=== PATIENT | female | born 1935 | race Caucasian/White ===

== ENCOUNTER 2019-07-30 20:03 | Emergency (ER) | payer MEDICARE ==
[~2019-07-30] VITALS: Ht 165.1 cm; Wt 84.1 kg
[~2019-07-30 20:03] MED LIST: ATOR20TA PO; CYCL-394 PO; DABI150C PO; DIGO250T PO; DRON400T6 PO; ISOS30TA9 PO; LOSA1TAB15 PO; METO100T7 PO; MULT-785 PO; SERT-153 PO; SITA100T15 PO
[2019-07-30] MEDS ORDERED: normal saline 1000ML IV soln IVB ONE (20:10)
[2019-07-30] MEDS ORDERED: CefTRIAXone 2gm/D5W 50ml 50 ML IV ONE (20:15)
[2019-07-30 20:57] LABS: CLARITY,URINE CLOUDY (Clear); COLOR,URINE YELLOW (Yellow); GLUCOSE, URINE NEGATIVE (Neg); KETONES,URINE NEGATIVE (Neg); LEUKOCYTE ESTERASE ,URINE MODERATE (Neg); NITRITES, URINE POSITIVE (Neg); OCCULT BLOOD,URINE TRACE-INTACT (Neg); PROTEIN,URINE 100 mg/dl (Neg)
[2019-07-30 20:59] LABS: BASOPHILS # (AUTO) 0.1 X10'3 (0-0.2); BASOPHILS % (AUTO) 0.9 % (0-1); EOSINOPHILS # (AUTO) 0.2 X10'3 (0-0.9); EOSINOPHILS % (AUTO) 2.2 % (0-6); LYMPHOCYTES # (AUTO) 2.6 X10'3 (1.1-4.8); LYMPHOCYTES % (AUTO) 23.4 % (21-51); MEAN CORPUSCULAR HEMOGLOBIN 28.1 PG (27.0-31.0); MEAN CORPUSCULAR HGB CONC 34.1 g/dL (33.0-36.5); MEAN CORPUSCULAR VOLUME 82.3 FL (78-98); MEAN PLATELET VOLUME 8.5 FL (7.4-10.4); MONOCYTES # (AUTO) 0.8 X10'3 (0-0.9); MONOCYTES % (AUTO) 7.4 % (2-12); NEUTROPHILS # (AUTO) 7.4 X10'3 (1.8-7.7); NEUTROPHILS % (AUTO) 66.1 % (42-75); PLATELET COUNT 310 X10'3 (140-440); RED BLOOD COUNT 4.98 X10'6 (4.20-5.60); RED CELL DISTRIBUTION WIDTH 14.4 % (11.5-14.5); WHITE BLOOD COUNT 11.2 X10'3 (4.5-11.0)
[2019-07-30 21:04] LABS: UA COLLECTION TYPE STRAIGHT CATH
[2019-07-30 21:05] LABS: BACTERIA,URINE 2+ /HPF (Neg); RBC,URINE 0-2 /HPF (0-2); SQUAMOUS EPITHELIAL CELL,UR FEW /LPF (FEW)
[2019-07-30 21:15] LABS: ALANINE AMINOTRANSFERASE 14 U/L (12-78); ALBUMIN 3.1 G/DL (3.4-5.0); ALBUMIN/GLOBULIN RATIO 0.8 (1.1-1.5); ALKALINE PHOSPHATASE 56 IU/L (46-116); ANION GAP 6 (8-16); ASPARTATE AMINO TRANSFERASE 16 U/L (10-37); BILIRUBIN,TOTAL 0.4 MG/DL (0.1-1.0); BLOOD UREA NITROGEN 20 MG/DL (7-18); CALCIUM 9.3 MG/DL (8.5-10.1); CHLORIDE 102 MMOL/L (99-107); CREATININE 0.69 MG/DL (0.40-0.90); GLUCOSE 120 MG/DL (70-104); POTASSIUM 3.7 MMOL/L (3.5-5.1); SODIUM 141 MMOL/L (135-145); TOTAL CARBON DIOXIDE 32.6 MMOL/L (24-32); TOTAL PROTEIN 7.2 G/DL (6.4-8.2); eGFR 81 ML/MIN
[2019-07-30] MEDS ORDERED: CEPH500C5 PO (21:54)
[2019-07-30 22:11] VITALS: BP 115/82
== END 2019-07-30 22:19 | disposition home or self-care (01) ==
LOC: ER 20:03
DX: N39.0 Urinary tract infection, site not specified (principal); I48.91 Unspecified atrial fibrillation; E78.00 Pure hypercholesterolemia, unspecified; I10 Essential (primary) hypertension; Z88.2 Allergy status to sulfonamides; Z79.899 Other long term (current) drug therapy; Z88.5 Allergy status to narcotic agent
CPT/HCPCS: 36415; 80053; 81001; 85025; 87077; 87088; 87186; 96365; 99283; J0696; J7030; P9612

== ENCOUNTER 2020-04-05 22:17 | Inpatient (IN) | payer MEDICARE, MEDICAID ==
[~2020-04-05] VITALS: Ht 165.1 cm; Wt 103.6 kg
[~2020-04-05 22:17] MED LIST changes: +CEPH500C5 PO
[2020-04-05] MEDS ORDERED: normal saline 1000ml 1,000 ML IV ONE (22:45)
--- NOTE | 2020-04-05 22:45 | NUR ---
SPOKE WITH EDRI YINA REGARDING PT HYPOTENSION. PER EDRI YINA, VERBAL ORDER FOR 1LITER NORMAL SALINE BOLUS AND DRAW A RAINBOW LABS. ORDER PLACED.
--- NOTE | 2020-04-05 22:48 | NUR ---
relieving RN for break, pt is in xray
--- NOTE | 2020-04-05 22:56 | NUR ---
PT IS BACK FROM XRAY, SHE IS GCS 15, PALE, CLAMMY, SHE IS ASKING FOR AN EKG, C/O FEELING WEAK AND CHEST PRESSURE, BP IS 77/54
[2020-04-05 23:06] LABS: BASOPHILS # (AUTO) 0.1 X10'3 (0-0.2); BASOPHILS % (AUTO) 0.2 % (0-1); EOSINOPHILS % (AUTO) 0 % (0-6); HEMATOCRIT 40.6 % (35.0-45.0); HEMOGLOBIN 13.3 g/dl (12.0-16.0); LYMPHOCYTES # (AUTO) 1.8 X10'3 (1.1-4.8); LYMPHOCYTES % (AUTO) 5.9 % (21-51); MEAN CORPUSCULAR HEMOGLOBIN 27.8 PG (27.0-31.0); MEAN CORPUSCULAR HGB CONC 32.9 g/dL (33.0-36.5); MEAN CORPUSCULAR VOLUME 84.5 FL (78-98); MEAN PLATELET VOLUME 8.1 FL (7.4-10.4); MONOCYTES # (AUTO) 1.3 X10'3 (0-0.9); MONOCYTES % (AUTO) 4.3 % (2-12); NEUTROPHILS # (AUTO) 27.2 X10'3 (1.8-7.7); NEUTROPHILS % (AUTO) 89.6 % (42-75); PLATELET COUNT 294 X10'3 (140-440); RED CELL DISTRIBUTION WIDTH 13.6 % (11.5-14.5)
[2020-04-05 23:07] LABS: WHITE BLOOD COUNT 30.4 X10'3 (4.5-11.0)
--- NOTE | 2020-04-05 23:10 | NUR ---
Dr Nation aware of WBC 30, report to Giovana DELCID, 1st liter NS infusing w/o
[2020-04-05] MEDS ORDERED: normal saline 1000ML IV soln IV ONE ×2 (23:15→23:55)
[2020-04-05 23:20] LABS: PLATELET ESTIMATE NORMAL; TOTAL CELLS COUNTED 100
[2020-04-05 23:23] LABS: ALANINE AMINOTRANSFERASE 27 U/L (12-78); ALBUMIN 3.2 G/DL (3.4-5.0); ALBUMIN/GLOBULIN RATIO 0.8 (1.1-1.5); ALKALINE PHOSPHATASE 53 IU/L (46-116); ANION GAP 13 (8-16); ASPARTATE AMINO TRANSFERASE 23 U/L (10-37); BILIRUBIN,TOTAL 0.8 MG/DL (0.1-1.0); BLOOD UREA NITROGEN 26 MG/DL (7-18); BUN/CREATININE RATIO 20.8 (6.6-38.0); CALCIUM 9.3 MG/DL (8.5-10.1); CHLORIDE 101 MMOL/L (99-107); CREATININE 1.25 MG/DL (0.40-0.90); GLUCOSE 230 MG/DL (70-104); SODIUM 140 MMOL/L (135-145); TOTAL CARBON DIOXIDE 25.7 MMOL/L (24-32); TOTAL PROTEIN 7.1 G/DL (6.4-8.2); eGFR 41 ML/MIN
--- NOTE | 2020-04-05 23:25 | NUR ---
PULSE OX IS 85% ON ROOM AIR WITH GOOD PLETH, PLACED 02 2LITERS NASAL CANNULA AND PULSE OX INCREASED TO 96%
--- NOTE | 2020-04-05 23:25 | NUR ---
ASSISTING RN WITH PT CARE, STARTED 20GU TO RT AC, IV TO LEFT AC INFILTRATED, DC'D CANNULA INTACT, BLOOD CX HAVE BEEN DRAWN
[2020-04-05 23:29] LABS: MAGNESIUM 1.8 MG/DL (1.5-2.4); TROPONIN I < 0.04 NG/ML (0.0-0.05)
[2020-04-05] MEDS ORDERED: levoFLOXACIN-Levaquin 750MG/D5 150 ML IV ONE (23:55)
[2020-04-06] VITALS (19 sets, daily range): BP systolic 78–136; BP diastolic 38–55
[2020-04-06 00:53] LABS: CLARITY,URINE CLOUDY (Clear); COLOR,URINE YELLOW (Yellow); GLUCOSE, URINE NEGATIVE (Neg); KETONES,URINE NEGATIVE (Neg); LEUKOCYTE ESTERASE ,URINE MODERATE (Neg); NITRITES, URINE POSITIVE (Neg); OCCULT BLOOD,URINE MODERATE (Neg); PH,URINE 5.5 (4.8-8.0); PROTEIN,URINE TRACE mg/dl (Neg); UA COLLECTION TYPE FOLEY CATH; UROBILINOGEN,URINE 0.2 E.U/dL (0.2-1.0)
[2020-04-06 00:57] LABS: BACTERIA,URINE 4+ /HPF (Neg); SQUAMOUS EPITHELIAL CELL,UR FEW /LPF (FEW); WBC,URINE TNTC /HPF (0-4)
--- NOTE | 2020-04-06 01:46 | NUR ---
LOG DECK TENDER AT BEDSIDE FOR SPLINT
--- NOTE | 2020-04-06 02:27 | NUR ---
PT BP 89/72, YINA MADE AWARE. 1 L NS BOLUS ORDERED
[2020-04-06] MEDS ORDERED: normal saline 1000ml 1,000 ML IV ONE (02:30)
--- NOTE | 2020-04-06 02:34 | NUR ---
SPOKE WITH WELLINGTON BRAN REGARDING PT PAIN. RECEIVED VERBAL ORDER FOR NORCO 10/325 PO X1 DOSE NOW. ORDER PLACED AND COMPLETED.
[2020-04-06] MEDS ORDERED: HYDROcodone/acetaminophen 10/325mg tab PO ONE (02:35)
[2020-04-06] MEDS ORDERED: magnesium 4gm in 100ml NS 100 ML IV PRN (03:00)
[2020-04-06] MEDS ORDERED: LIDOcaine 2% 10ml TOPICAL JELLY (Urojet) TP ONE (03:00)
[2020-04-06] MEDS ORDERED: HYDROcodone/acetaminophen 5mg/325mg tablet PO PRN (03:00)
[2020-04-06] MEDS ORDERED: ondansetron/PF 4mg/2ml inj IV PRN (03:00)
[2020-04-06] MEDS ORDERED: HYDROmorphone inj. 0.5 MG/0.5 ML DISP.SYRIN IV PRN (03:00)
[2020-04-06] MEDS ORDERED: acetaminophen 325mg tablet PO PRN (03:00)
[2020-04-06] MEDS ORDERED: magnesium 2GM in 50ml NS 50 ML IV PRN (03:00)
[2020-04-06] MEDS ORDERED: potassium CL 10mEq/100ml bag 100 ML IV PRN ×2 (03:00)
[2020-04-06] MEDS ORDERED: potassium Cl 20 mEq SR tablet PO PRN ×2 (03:00)
--- NOTE | 2020-04-06 03:25 | NUR ---
Patient in room PCU 3010. I have received report from Giovana DELCID and had the opportunity to ask questions and assume patient care.
[2020-04-06] MEDS: normal saline 1000ml 1,000 ML IV SCH ×3 (03:45→21:21)
--- NOTE | 2020-04-06 04:00 | NUR ---
CALLED HOSPITALIST BENJI REGARDING PT MANUAL BLOOD PRESSURE 86/51. RECEIVED VERBAL ORDER FOR 500ML NORMAL SALINE BOLUS NOW.
[2020-04-06] MEDS ORDERED: normal saline 1000ML IV soln IVB ONE (04:05)
--- NOTE | 2020-04-06 04:27 | NUR ---
CALLED HOSPITALIST BENJI REGARDING PT NEW BLOOD PRESSURE 106/58. PER BENJI, HE IS OKAY WITH PT GOING UP TO THE FLOOR AT THIS TIME. WILL TRANSPORT PT UPSTAIRS. BENJI ALSO MADE AWARE OF PT POOR URINARY OUTPUT OF 375ML FROM HER TEMP KAUFMAN. NO NEW ORDERS.
--- NOTE | 2020-04-06 05:30 | NUR ---
PAGER ID: [phone] MESSAGE: patient in room # 3010 Hardik Manual BP 86/55 (49 character message out of a maximum of 240) Close [X] Send Another Page Thank you for visiting [facility]
--- NOTE | 2020-04-06 05:45 | NUR ---
Dr Smith called back. I informed manual, & auto BP map 55-60, considering calling [facility]. gave order to bolus 500 with map <500. Informed Lactic=4.1, he said do not redraw for another 2 hours from now. put misc/lab orders in and informed oncoming nurse.
--- NOTE | 2020-04-06 06:15 | NUR ---
Patient in room PCU 3010. I have received report from FARHANA Avina and had the opportunity to ask questions and assume patient care. Patient resting in bed in no distress and vitals stable.
--- NOTE | 2020-04-06 06:25 | NUR ---
Problems reprioritized. Patient report given, questions answered & plan of care reviewed with Ivanna & Cachorro DELCID.
--- NOTE | 2020-04-06 06:40 | NUR ---
bedside report given Addendum: 04/06/20 at 0721 by Kailyn Valadez RN Amended: Links added.
--- NOTE | 2020-04-06 06:49 | NUR ---
Patient in room PCU 3010. I have received report from Kailyn DELCID and had the opportunity to ask questions and assume patient care.
[2020-04-06] MEDS: sertraline 50mg tablet PO SCH (07:35)
[2020-04-06] MEDS: multivitamins, therapeutics tablet PO SCH (07:36)
[2020-04-06] MEDS: dabigatran 150mg capsule PO SCH ×2 (07:36→20:39)
[2020-04-06] MEDS: docusate sod 100mg capsule PO SCH ×2 (07:36→20:39)
[2020-04-06] MEDS: HYDROcodone/acetaminophen 10/325mg tab PO PRN ×3 (07:39→20:39)
[2020-04-06] MEDS: K and/or MAG REPLACEMENT MC SCH ×2 (08:00→20:00)
--- NOTE | 2020-04-06 08:42 | NUR ---
PAGER ID: [phone] MESSAGE: [id number] Debbie Dye: FYI repeat lactic is 5.5, previously was 4.1. thanks sheldon [phone]
[2020-04-06] MEDS ORDERED: AMLO10TA48 PO (09:28)
[2020-04-06] MEDS ORDERED: METO100T14 PO (09:28)
[2020-04-06] MEDS ORDERED: SENN-263 PO (09:28)
[2020-04-06] MEDS ORDERED: ISOS60TA4 PO (09:28)
[2020-04-06] MEDS ORDERED: ALBU18HF2 INH (09:28)
--- NOTE | 2020-04-06 10:00 | NUR ---
Administered 500cc NS bolus per md orders for BP MAP < 60
--- NOTE | 2020-04-06 12:03 | NUR ---
Paged Dr. García concerning patient's low BP RE: Debbie Dye Rm [phone] FYI: Patient blood pressure 78/51 (60) with maintenance of 100 ml/hr and receiving bolus 500 ml. Cachorro DELCID, [phone]
--- NOTE | 2020-04-06 13:11 | NUR ---
Administered 500 ml bolus for low BP 105/39.
--- NOTE | 2020-04-06 14:45 | NUR ---
Dr. García Page regarding patient's low BP Re Debbie Hardik Rm 0747 Patient vitals: BP 94/35 (54), HR 60 at end of second 500 ml bolus. Please advise, patient's diastolic remains 30-40s. Cachorro DELCID. [phone]
--- NOTE | 2020-04-06 14:48 | NUR ---
Order to change maintenance fluids for NS to 125 ml/hr verbally from Dr. García.
--- NOTE | 2020-04-06 17:55 | NUR ---
Orientee documentation: I have reviewed and agree with all interventions, assessments performed and documented by Cachorro DELCID.
--- NOTE | 2020-04-06 18:28 | NUR ---
Problems reprioritized. Patient report given, questions answered & plan of care reviewed with Lin DELCID.
--- NOTE | 2020-04-06 18:30 | NUR ---
Patient in room PCU 3012. I have received report from Kathleen DELCID and had the opportunity to ask questions and assume patient care.
[2020-04-06] MEDS: atorvastatin 20mg tablet PO SCH (20:39)
[2020-04-06] MEDS: lactobacillus rhamnosus 10,000 MMU CELLS/CAPSULE PO SCH (20:39)
[2020-04-06] MEDS: mineral oil/petrolatum, white cream 113gm jar TP SCH (20:40)
[2020-04-06] MEDS ORDERED: levoFLOXACIN-Levaquin 750MG/D5 150 ML IV SCH (23:00)
[2020-04-07] VITALS (19 sets, daily range): BP systolic 89–132; BP diastolic 42–100
--- NOTE | 2020-04-07 04:28 | NUR ---
PAGER ID: [phone] MESSAGE: boris Dye 77I [id number] admitted with sepsis, L arm blood culture came back positive for gram postivie cocci thank you katelynn DELCID [phone]
[2020-04-07 05:27] LABS: BASOPHILS % (AUTO) 0.2 % (0-1); EOSINOPHILS % (AUTO) 0.2 % (0-6); HEMATOCRIT 25.8 % (35.0-45.0); HEMOGLOBIN 8.6 g/dl (12.0-16.0); LYMPHOCYTES # (AUTO) 2.5 X10'3 (1.1-4.8); LYMPHOCYTES % (AUTO) 13.2 % (21-51); MEAN CORPUSCULAR HEMOGLOBIN 28.3 PG (27.0-31.0); MEAN CORPUSCULAR HGB CONC 33.2 g/dL (33.0-36.5); MEAN CORPUSCULAR VOLUME 85.2 FL (78-98); MEAN PLATELET VOLUME 8.4 FL (7.4-10.4); MONOCYTES # (AUTO) 1.4 X10'3 (0-0.9); MONOCYTES % (AUTO) 7.5 % (2-12); NEUTROPHILS # (AUTO) 14.9 X10'3 (1.8-7.7); NEUTROPHILS % (AUTO) 78.9 % (42-75); PLATELET COUNT 188 X10'3 (140-440); RED BLOOD COUNT 3.03 X10'6 (4.20-5.60); RED CELL DISTRIBUTION WIDTH 14.1 % (11.5-14.5); WHITE BLOOD COUNT 18.9 X10'3 (4.5-11.0)
[2020-04-07 05:40] LABS: ALANINE AMINOTRANSFERASE 22 U/L (12-78); ALBUMIN 2.3 G/DL (3.4-5.0); ALBUMIN/GLOBULIN RATIO 0.8 (1.1-1.5); ALKALINE PHOSPHATASE 35 IU/L (46-116); ANION GAP 7 (8-16); ASPARTATE AMINO TRANSFERASE 24 U/L (10-37); BILIRUBIN,TOTAL 0.4 MG/DL (0.1-1.0); BLOOD UREA NITROGEN 23 MG/DL (7-18); BUN/CREATININE RATIO 31.9 (6.6-38.0); CHLORIDE 109 MMOL/L (99-107); CREATININE 0.72 MG/DL (0.40-0.90); GLUCOSE 125 MG/DL (70-104); MAGNESIUM 1.5 MG/DL (1.5-2.4); POTASSIUM 3.6 MMOL/L (3.5-5.1); SODIUM 140 MMOL/L (135-145); TOTAL CARBON DIOXIDE 23.8 MMOL/L (24-32); TOTAL PROTEIN 5.3 G/DL (6.4-8.2); eGFR 77 ML/MIN
--- NOTE | 2020-04-07 06:05 | NUR ---
Problems reprioritized. Patient report given, questions answered & plan of care reviewed with Kathleen DELCID.
--- NOTE | 2020-04-07 06:31 | NUR ---
Patient in room PCU 3012. I have received report from Lorene DELCID and had the opportunity to ask questions and assume patient care.
--- NOTE | 2020-04-07 06:46 | NUR ---
Patient in room PCU 3012. I have received report from Lin DELCID and had the opportunity to ask questions and assume patient care.
[2020-04-07] MEDS: normal saline 1000ml 1,000 ML IV SCH ×3 (06:53→21:21)
[2020-04-07] MEDS: sertraline 50mg tablet PO SCH (07:46)
[2020-04-07] MEDS: multivitamins, therapeutics tablet PO SCH (07:46)
[2020-04-07] MEDS: docusate sod 100mg capsule PO SCH ×2 (07:46→20:00)
[2020-04-07] MEDS: HYDROmorphone 1 mg/ml syringe IV PRN (07:47)
[2020-04-07] MEDS: lactobacillus rhamnosus 10,000 MMU CELLS/CAPSULE PO SCH ×2 (07:47→20:00)
[2020-04-07] MEDS: mineral oil/petrolatum, white cream 113gm jar TP SCH ×2 (08:00→20:00)
[2020-04-07] MEDS: K and/or MAG REPLACEMENT MC SCH ×2 (08:00→20:00)
[2020-04-07] MEDS: dabigatran 150mg capsule PO SCH (10:22)
[2020-04-07] MEDS ORDERED: ringers solution, lacted 1,000 ML IV ONE (11:27)
[2020-04-07] MEDS: nystatin 15 GM powder TP SCH ×2 (12:13→20:00)
--- NOTE | 2020-04-07 13:30 | NUR ---
Administered 500cc NS bolus for BP Map < 60 per md orders.
--- NOTE | 2020-04-07 17:10 | NUR ---
Orientee documentation: I have reviewed and agree with all interventions, assessments performed and documented by Kathleen DELCID.
--- NOTE | 2020-04-07 18:11 | NUR ---
Problems reprioritized. Patient report given, questions answered & plan of care reviewed with Lin DELCID.
[2020-04-07] MEDS ORDERED: fentaNYL/PF 50MCG/1 ML 2ML syringe ONE ×2 (18:32→19:53)
[2020-04-07] MEDS ORDERED: etomidate 2mg/ml inj. ONE (18:33)
[2020-04-07] MEDS ORDERED: midazolam 2 mg/2 ml injection ONE (18:33)
[2020-04-07] MEDS ORDERED: ROPIVAcaine 0.5% (5mg/ml) 30ml vial ONE ×2 (18:34)
[2020-04-07] MEDS ORDERED: ringers solution, lacted 1,000 ML IV SCH (18:42)
[2020-04-07] MEDS ORDERED: ondansetron/PF 4mg/2ml inj IV PRN (18:45)
[2020-04-07] MEDS ORDERED: fentaNYL/PF 50MCG/1 ML 2ML syringe IV PRN ×2 (18:45)
[2020-04-07] MEDS ORDERED: labetalol 20mg/4ml (5mg/ml) syringe IV PRN (18:45)
[2020-04-07] MEDS ORDERED: morphine 2 MG/ML inj. syringe IV PRN (18:45)
[2020-04-07] MEDS ORDERED: morphine 4 MG/ML inj SYRINge IV PRN (18:45)
[2020-04-07] MEDS ORDERED: hydrALAZINE 20mg/ml inj. IV PRN (18:45)
[2020-04-07] MEDS ORDERED: albumin (Human) 5% 250ml 250 ML IV ONE ×2 (19:17)
[2020-04-07] MEDS ORDERED: ceFAZolin 1000mg inj ONE (19:22)
[2020-04-07] MEDS ORDERED: ondansetron/PF 4mg/2ml inj ONE (19:52)
--- NOTE | 2020-04-07 20:35 | NUR ---
Received from OR via PCU BED, accompanied by Anesthesiologist DR SARAH and report given by Anesthesiolgist. PT PLACED ON O2 AND MONITOR, S/P ORIF LEFT TIBIA, GENERAL ANESTH, PT HAS DRESSING TO ANTERIOR LOWER LEG WITH WOUND VAC ATTACHED, NO DRAINAGE NOTED, GOOD PEDAL PULSES BILAT, PT HAS SEVERE ECCHYMOSIS TO RIGHT LOWER LEG WELL. PT HAD, LEFT LEFT FEMORAL NERVE BLOCK AND LEFT SCIATIC BLOCK, DENIES ANY PAIN OR NAUSEA AT THIS TIME WILL CONT TO ASSESS.
--- NOTE | 2020-04-07 21:45 | NUR ---
Report called to receiving nurse. Transferred via PCU BED TO ROOM 3012A Belongings . Special Issues communicated to receiving nurse. REVIEWED PT'S SURGERY SITE WITH PT'S RN, RESPIRATORY LEFT BIPAP AT BEDSIDE PT STILL HAS NOT NEEDED IT AT THIS TIME. ANESTHESIA WANTED IT ON STANDBY.
--- NOTE | 2020-04-07 22:00 | NUR ---
pt arrived back to PCU unit from surgery, pt still coming off anesthesia. pt on non rebreather at 10 liters tolerating well does not complain of any pain at this time. L leg has immobilization in place and L anterior wound vac intact and suctioning. will closely monitor pt
[2020-04-07] MEDS ORDERED: levoFLOXACIN-Levaquin 750MG/D5 150 ML IV SCH (23:00)
[2020-04-08] VITALS (14 sets, daily range): BP systolic 93–120; BP diastolic 39–78
[2020-04-08] MEDS: atorvastatin 20mg tablet PO SCH ×2 (00:26→20:33)
[2020-04-08] MEDS: dabigatran 150mg capsule PO SCH ×3 (00:26→20:32)
[2020-04-08] MEDS: cefazolin/dext.iso 2gm/50ml 50 ML IV SCH ×2 (01:42→09:57)
[2020-04-08] MEDS: HYDROmorphone 1 mg/ml syringe IV PRN ×2 (01:58→14:01)
[2020-04-08] MEDS ORDERED: famotidine 20mg tablet PO ONE (06:00)
--- NOTE | 2020-04-08 06:05 | NUR ---
received report from yari pace
[2020-04-08 06:08] LABS: BASOPHILS % (AUTO) 0.1 % (0-1); EOSINOPHILS % (AUTO) 0 % (0-6); LYMPHOCYTES % (AUTO) 8.7 % (21-51); MEAN CORPUSCULAR HEMOGLOBIN 28.5 PG (27.0-31.0); MEAN CORPUSCULAR VOLUME 86.4 FL (78-98); MEAN PLATELET VOLUME 8.3 FL (7.4-10.4); MONOCYTES # (AUTO) 0.6 X10'3 (0-0.9); MONOCYTES % (AUTO) 5.1 % (2-12); NEUTROPHILS # (AUTO) 10.2 X10'3 (1.8-7.7); NEUTROPHILS % (AUTO) 86.1 % (42-75); PLATELET COUNT 159 X10'3 (140-440); RED BLOOD COUNT 2.37 X10'6 (4.20-5.60); RED CELL DISTRIBUTION WIDTH 14.3 % (11.5-14.5); WHITE BLOOD COUNT 11.9 X10'3 (4.5-11.0)
[2020-04-08 06:15] LABS: HEMATOCRIT 20.4 % (35.0-45.0); HEMOGLOBIN 6.7 g/dl (12.0-16.0)
--- NOTE | 2020-04-08 06:17 | NUR ---
PAGER ID: [phone] MESSAGE: Debbie Hardik [id number], pt had a ortho procedure on L tibia due to fracture yesterday pt H&H is 6.7 and 20.4 this morning which is decreased from yesterday 8.6 and 25.8. thank you Lin Otto 2052
[2020-04-08 06:23] LABS: ALANINE AMINOTRANSFERASE 22 U/L (12-78); ALBUMIN 2.6 G/DL (3.4-5.0); ALBUMIN/GLOBULIN RATIO 0.9 (1.1-1.5); ALKALINE PHOSPHATASE 31 IU/L (46-116); ANION GAP 8 (8-16); ASPARTATE AMINO TRANSFERASE 20 U/L (10-37); BILIRUBIN,TOTAL 0.4 MG/DL (0.1-1.0); BLOOD UREA NITROGEN 18 MG/DL (7-18); CHLORIDE 110 MMOL/L (99-107); GLUCOSE 148 MG/DL (70-104); MAGNESIUM 1.5 MG/DL (1.5-2.4); POTASSIUM 3.6 MMOL/L (3.5-5.1); SODIUM 142 MMOL/L (135-145); TOTAL CARBON DIOXIDE 23.6 MMOL/L (24-32); TOTAL PROTEIN 5.4 G/DL (6.4-8.2); eGFR > 90 ML/MIN
--- NOTE | 2020-04-08 06:28 | NUR ---
Problems reprioritized. Patient report given, questions answered & plan of care reviewed with Tonya DELCID.
[2020-04-08] MEDS: lactobacillus rhamnosus 10,000 MMU CELLS/CAPSULE PO SCH ×2 (08:00→20:00)
[2020-04-08] MEDS: multivitamins, therapeutics tablet PO SCH (08:00)
[2020-04-08] MEDS: K and/or MAG REPLACEMENT MC SCH ×2 (08:00→20:00)
[2020-04-08] MEDS: docusate sod 100mg capsule PO SCH ×2 (08:00→20:00)
[2020-04-08] MEDS: cyclobenzaprine 10mg tablet PO PRN ×2 (08:08→20:32)
[2020-04-08] MEDS: sertraline 50mg tablet PO SCH (08:12)
[2020-04-08] MEDS: nystatin 15 GM powder TP SCH ×2 (08:15→20:36)
[2020-04-08] MEDS: mineral oil/petrolatum, white cream 113gm jar TP SCH ×2 (08:15→20:36)
--- NOTE | 2020-04-08 08:15 | NUR ---
scanner on computer not scanning meds into [employer], checked all meds prior to admin
[2020-04-08] MEDS: normal saline 1000ml 1,000 ML IV SCH ×3 (08:16→20:36)
--- NOTE | 2020-04-08 13:49 | NUR ---
pt provena wound vac battery is low and cannister full, nursing sup okayed vac change to large hemovac w/provena therapy, vac change is successful, continue to monitor
--- NOTE | 2020-04-08 14:28 | NUR ---
took pics of pt wounds, photos in chart, continue to monitor
--- NOTE | 2020-04-08 15:11 | NUR ---
throughout day offered pt to take something that would help her have a bm, pt refused telling me 'i dont need that', continue to educate and monitor
--- NOTE | 2020-04-08 18:10 | NUR ---
Patient in room PCU 3012. I have received report from FARHANA Castaneda and had the opportunity to ask questions and assume patient care.
--- NOTE | 2020-04-08 18:18 | NUR ---
gave report to yari de leon
--- NOTE | 2020-04-08 23:54 | NUR ---
Patient is refusing to keep blood pressure cuff on for mobile monitoring.
[2020-04-09 02:00] VITALS: BP 114/47
[2020-04-09 06:00] VITALS: BP 112/93
--- NOTE | 2020-04-09 06:00 | NUR ---
Problems reprioritized. Patient report given, questions answered & plan of care reviewed with
--- NOTE | 2020-04-09 06:19 | NUR ---
Problems reprioritized. Patient report given, questions answered & plan of care reviewed with FARHANA Logan.
--- NOTE | 2020-04-09 06:51 | NUR ---
Patient refused Labs will continue to monitor
[2020-04-09] MEDS: docusate sod 100mg capsule PO SCH ×2 (07:54→20:00)
[2020-04-09] MEDS: sertraline 50mg tablet PO SCH (07:56)
[2020-04-09] MEDS: K and/or MAG REPLACEMENT MC SCH ×2 (08:00→20:00)
[2020-04-09] MEDS: nystatin 15 GM powder TP SCH ×2 (08:00→20:32)
[2020-04-09] MEDS: lactobacillus rhamnosus 10,000 MMU CELLS/CAPSULE PO SCH ×2 (08:00→20:00)
[2020-04-09] MEDS: multivitamins, therapeutics tablet PO SCH (08:00)
[2020-04-09] MEDS: mineral oil/petrolatum, white cream 113gm jar TP SCH ×2 (08:00→20:33)
[2020-04-09] MEDS: dabigatran 150mg capsule PO SCH ×2 (08:00→20:30)
--- NOTE | 2020-04-09 08:03 | NUR ---
Patient refusing her Multi vitamin, Pradaxa and lactobacillus saying she will take them in evening.
--- NOTE | 2020-04-09 09:18 | NUR ---
Spoke to Debbie about refusing labs and explained the importance of the labs. Patient does not want them drawn and states they may try again tonight.
[2020-04-09 11:00] VITALS: BP 144/89
--- NOTE | 2020-04-09 12:29 | NUR ---
Had RT listen to Sergio lungs to evaluate RT needs patient states daughter might be able to bring home CPAP in.
--- NOTE | 2020-04-09 13:42 | NUR ---
PAGER ID: [phone] MESSAGE: [id number] Debbie Dye May need to have pacer interogated due to some new morphology on telle. Pacer was not capturing but now back to baseline. #[id number]
[2020-04-09] MEDS: normal saline 1000ml 1,000 ML IV SCH (14:19)
[2020-04-09 15:00] VITALS: BP 96/71
--- NOTE | 2020-04-09 15:40 | NUR ---
RECEIVED REPOT FROM FARHANA ANAYA. AGREE WITH PRIOR ASSESSMENT.EXCEPT ORIENTED TO SELF ONLY. REFUSING ALL CARE AT THIS TIME. ORDER TO HAVE PPM INTERROGATED. NOT ABLE TO TELL MY MANUFACTURE, BUT STATES "WAS DR. COATS IN [place]" . CALLED THAT OFFICE, SPOKE TO "BRANDYN", STATES"IT IS A [employer] PACEMAKER".
--- NOTE | 2020-04-09 15:44 | NUR ---
Problems reprioritized. Patient report given, questions answered & plan of care reviewed with Amauri.
--- NOTE | 2020-04-09 15:48 | NUR ---
PAGED RT:NEW RT ORDERS FOR 3012A. SHE IS ANXIOS TO SEE YOU. LINDSAY [phone]. TY
[2020-04-09] MEDS: ipratropium/albuterol 3ml nebule NEB SCH ×3 (15:59→23:14)
--- NOTE | 2020-04-09 17:49 | NUR ---
PAGER ID: [phone] MESSAGE: DR. JACOB, [id number]/ARTURO, I ASSUMED CARE AT 1540. JUST READ TODAYS PROG NOTE. SHE IS CONFUSED TO TIME AND PLACE. INSISTS WE ARE NOT IN [place] OR [facility], AND THAT IT IS April. IGNACIO, LINDSAY 4041.
[2020-04-09 18:00] VITALS: BP 130/88
--- NOTE | 2020-04-09 18:29 | NUR ---
Problems reprioritized. Patient report given, questions answered & plan of care reviewed with FARHANA MONTGOMERY.
[2020-04-09] MEDS: atorvastatin 20mg tablet PO SCH (20:30)
[2020-04-09] MEDS: cyclobenzaprine 10mg tablet PO PRN (20:30)
[2020-04-09 22:00] VITALS: BP 139/52
[2020-04-10] VITALS (13 sets, daily range): BP systolic 107–143; BP diastolic 51–67
[2020-04-10] MEDS: ipratropium/albuterol 3ml nebule NEB SCH ×6 (03:29→22:50)
--- NOTE | 2020-04-10 05:02 | NUR ---
Patient refused all repositioning and wound care throughout shift. I discussed the importance of allowing us to do these things, she stated, "maybe tomorrow, but not tonight"
--- NOTE | 2020-04-10 06:05 | NUR ---
RECEIVED REPORT FROM FARHANA MONTGOMERY
--- NOTE | 2020-04-10 06:11 | NUR ---
Problems reprioritized. Patient report given, questions answered & plan of care reviewed with FARHANA Castaneda.
[2020-04-10 06:57] LABS: BASOPHILS % (AUTO) 0.2 % (0-1); EOSINOPHILS % (AUTO) 0.1 % (0-6); HEMOGLOBIN 8.5 g/dl (12.0-16.0); LYMPHOCYTES % (AUTO) 9.9 % (21-51); MEAN CORPUSCULAR HEMOGLOBIN 28.3 PG (27.0-31.0); MEAN CORPUSCULAR HGB CONC 32.8 g/dL (33.0-36.5); MEAN CORPUSCULAR VOLUME 86.3 FL (78-98); MEAN PLATELET VOLUME 8.3 FL (7.4-10.4); MONOCYTES # (AUTO) 1.9 X10'3 (0-0.9); MONOCYTES % (AUTO) 9.4 % (2-12); NEUTROPHILS # (AUTO) 16.4 X10'3 (1.8-7.7); NEUTROPHILS % (AUTO) 80.4 % (42-75); PLATELET COUNT 207 X10'3 (140-440); RED BLOOD COUNT 3.02 X10'6 (4.20-5.60); WHITE BLOOD COUNT 20.4 X10'3 (4.5-11.0)
[2020-04-10 07:13] LABS: ALANINE AMINOTRANSFERASE 19 U/L (12-78); ALBUMIN 2.6 G/DL (3.4-5.0); ALBUMIN/GLOBULIN RATIO 0.9 (1.1-1.5); ALKALINE PHOSPHATASE 38 IU/L (46-116); ANION GAP 12 (8-16); ASPARTATE AMINO TRANSFERASE 16 U/L (10-37); BILIRUBIN,TOTAL 0.9 MG/DL (0.1-1.0); BLOOD UREA NITROGEN 16 MG/DL (7-18); BUN/CREATININE RATIO 28.1 (6.6-38.0); CALCIUM 8.7 MG/DL (8.5-10.1); CHLORIDE 110 MMOL/L (99-107); CREATININE 0.57 MG/DL (0.40-0.90); GLUCOSE 139 MG/DL (70-104); MAGNESIUM 1.7 MG/DL (1.5-2.4); SODIUM 143 MMOL/L (135-145); TOTAL CARBON DIOXIDE 20.7 MMOL/L (24-32); TOTAL PROTEIN 5.6 G/DL (6.4-8.2); eGFR > 90 ML/MIN
[2020-04-10 07:15] LABS: POTASSIUM 2.9 MMOL/L (3.5-5.1)
--- NOTE | 2020-04-10 07:26 | NUR ---
CRITICAL LAB VALUE TAKEN FROM LAB, REPORTED TO PRIMARY RN.
[2020-04-10] MEDS ORDERED: potassium CL 10mEq/100ml bag 100 ML IV PRN (07:35)
[2020-04-10] MEDS ORDERED: magnesium Cl slow-release 64mg tablet PO PRN ×2 (07:35→12:50)
[2020-04-10] MEDS: K and/or MAG REPLACEMENT MC SCH ×2 (07:35→08:00)
[2020-04-10] MEDS ORDERED: magnesium 4gm in 100ml NS 100 ML IV PRN ×2 (07:35→12:50)
[2020-04-10] MEDS ORDERED: potassium Cl 20 mEq SR tablet PO PRN ×3 (07:35→12:50)
[2020-04-10 07:36] LABS: NUCLEATED RED BLOOD CELLS 2 /100WBC (0-0); PLATELET ESTIMATE NORMAL; TOTAL CELLS COUNTED 100
[2020-04-10] MEDS: docusate sod 100mg capsule PO SCH ×2 (08:00→22:26)
[2020-04-10] MEDS: potassium Cl 20 mEq SR tablet PO PRN ×2 (08:21→11:09)
[2020-04-10] MEDS: dabigatran 150mg capsule PO SCH ×2 (08:21→22:27)
[2020-04-10] MEDS: cyclobenzaprine 10mg tablet PO PRN (08:22)
[2020-04-10] MEDS: sertraline 50mg tablet PO SCH (08:22)
[2020-04-10] MEDS: multivitamins, therapeutics tablet PO SCH (08:24)
[2020-04-10] MEDS: lactobacillus rhamnosus 10,000 MMU CELLS/CAPSULE PO SCH ×2 (08:24→22:26)
[2020-04-10] MEDS: mineral oil/petrolatum, white cream 113gm jar TP SCH ×2 (08:25→20:00)
[2020-04-10] MEDS: nystatin 15 GM powder TP SCH ×2 (08:25→22:30)
[2020-04-10] MEDS ORDERED: levoFLOXACIN 750MG TABLET PO SCH (11:00)
[2020-04-10 11:21] LABS: ABG BASE EXCESS -8.9 mmol/L (-2.0-2.0); ABG HCO3 17.2 mmol/L (22.0-26.0); ABG OXYGEN SATURATION 88.1 % (94-97); ABG PCO2 (T) 36.6 mmHg (32.0-45.0); ABG PO2 (T) 57.8 mmHg (75.0-100.0); ALLEN'S TEST POSITIVE; FCOHb 0.3 % (0.0-3.9); FLOW 3 L/min; FMetHb 0.3 % (0.0-1.5); FO2Hb 87.6 % (94-97); PATIENT TEMPERATURE 36.3; TOTAL HEMOGLOBIN 9.3 G/dl (12.0-16.0)
--- NOTE | 2020-04-10 11:24 | NUR ---
Pt extremely anxious and SOB. Educated pt to deep breath in through her nose and out through her mouth with deep coughing. Pt has mucus in her throat that she refuses to sit up and cough. ABG obtained with pt on 3lpm. 7.28, 37.7, 60.7, 17.2. Pt is metabolically acidotic, RN notified. Educated pt on the importance of coughing up her phlegm and she just keeps stating she cant. Spoke with nurse Castaneda and charge Cruz, pts anxiety is a major factor of her SOB and is not following the education of RN and RT. Pt is 99% of 4lpm. When she calms down and stops yelling her RR is in the low to mid 20's. When she gets agitated and anxious her RR is in the high 30's to 40's. Administered 1100 svn tx and pt ripped the mask off and took apart the nebulizer, dumping out the medication. FARHANA Castaneda aware. Addendum: 04/10/20 at 1138 by Garima Armstrong RT Amended: Links added.
--- NOTE | 2020-04-10 11:46 | NUR ---
Initial: Pt admit w/ sepsis r/t UTI, HTN, hyperlipidemia s/p ORIF for L tibia fx from fall per MD. AOx4 but quite resistive to care per RN/EMR today; refusing colace this AM as well though LBM 04/06. Noted pt has slurred speech at times as well; ANDREW recommended HAND INSPECTOR BSS pending recs at this time. Pt PO 0-25% past 4 days not meeting needs though not appropriate for high protein ed given resistiveness. PO likely impacted by constipation as well. Pt is requesting water to drink w/ straw per MD note; will trial ensure enlive TIDWM in hopes PO liquid tolerance/acceptance. MD notified. Current wt not accurate 110kg w/ no method noted; latest 103.5kg bed scale wt making BMI 39. Will continue to monitor for additional protein needs post-op. Rec: 1. liberalize diet as medically indicated to regular pending HAND INSPECTOR recs; encourage PO 2. ensure enlive TIDWM 3. routine bowel care 4. weekly wts Addendum: 04/10/20 at [address] Amended: Links added.
[2020-04-10 12:41] LABS: ABG BASE EXCESS -11.3 mmol/L (-2.0-2.0); ABG HCO3 16.9 mmol/L (22.0-26.0); ABG OXYGEN SATURATION 88.8 % (94-97); ABG PCO2 (T) 48.4 mmHg (32.0-45.0); ABG PO2 (T) 75.8 mmHg (75.0-100.0); ALLEN'S TEST POSITIVE; FCOHb 0.3 % (0.0-3.9); FLOW 5 L/min; FMetHb 0.1 % (0.0-1.5); FO2Hb 88.4 % (94-97); TOTAL HEMOGLOBIN 9.5 G/dl (12.0-16.0)
[2020-04-10] MEDS ORDERED: sodium chloride 0.45% 1,000 ML IV SCH (12:46)
[2020-04-10] MEDS ORDERED: morphine 2 MG/ML inj. syringe IV PRN (12:50)
[2020-04-10] MEDS ORDERED: sodium phosphate inj. 30 MMOL in dextrose 5%-water 250 ML IV PRN (12:50)
[2020-04-10] MEDS ORDERED: magnesium hydroxide 30ml (MOM) UD suspension PO PRN (12:50)
[2020-04-10] MEDS ORDERED: sennosides 8.6mg tablet PO PRN (12:50)
[2020-04-10] MEDS ORDERED: albuterol 2.5 MG/3 ML nebule NEB PRN ×2 (12:50)
[2020-04-10] MEDS ORDERED: magnesium 2GM in 50ml NS 50 ML IV PRN (12:50)
[2020-04-10] MEDS ORDERED: Neutra Phos packet PO PRN (12:50)
[2020-04-10] MEDS ORDERED: acetaminophen 325mg tablet PO PRN ×2 (12:50)
[2020-04-10] MEDS: K, MAG and/or Phos replacement - Verify level? MC SCH (12:50)
[2020-04-10] MEDS ORDERED: ondansetron/PF 4mg/2ml inj IV PRN (12:50)
[2020-04-10] MEDS ORDERED: LIDOcaine 2% 10ml TOPICAL JELLY (Urojet) TP ONE (12:50)
--- NOTE | 2020-04-10 12:55 | NUR ---
Patient report received from FARHANA Castaneda on PCU,
--- NOTE | 2020-04-10 13:01 | NUR ---
gave report to yari oliveira
--- NOTE | 2020-04-10 13:26 | NUR ---
pt transferred to icu
[2020-04-10] MEDS ORDERED: FENTANYL-0.9 % NACL/PF 100 ML IV PRN (13:48)
[2020-04-10 13:49] LABS: PARTIAL THROMBOPLASTIN TIME 36 SECONDS (22-32)
[2020-04-10] MEDS: pantoprazole 40 MG vial IV SCH (13:55)
[2020-04-10 13:56] LABS: LACTIC SEPSIS 2.2 MMOL/L (0.4-2.0)
[2020-04-10] MEDS: midazolam 100mg in NS 100ml 100 ML IV PRN ×2 (13:57→23:07)
[2020-04-10 14:05] LABS: MAGNESIUM 1.5 MG/DL (1.5-2.4); PHOSPHORUS 2.2 MG/DL (2.3-4.5)
[2020-04-10 14:10] LABS: ABG BASE EXCESS -7.8 mmol/L (-2.0-2.0); ABG HCO3 17.9 mmol/L (22.0-26.0); ABG OXYGEN SATURATION 96.9 % (94-97); ABG PCO2 (T) 37.2 mmHg (32.0-45.0); ABG PO2 (T) 103.4 mmHg (75.0-100.0); ALLEN'S TEST POSITIVE; FCOHb 0.3 % (0.0-3.9); FMetHb 0.3 % (0.0-1.5); FO2Hb 96.3 % (94-97); PEEP 5 cm H2O; RESPIRATORY RATE 18 b/min; TIDAL VOLUME 500 mL
[2020-04-10] MEDS: metroNIDAZOLE-Flagyl 750mg/NS 150 ML IV SCH ×2 (14:47→22:30)
--- NOTE | 2020-04-10 14:51 | NUR ---
Unable to place OG tube or NG tube. Per Dr. Da Silva, try again tomorrow 04/11/20.
[2020-04-10] MEDS ORDERED: iohexol 350MG/ML 100ml bottle IV ONE (15:50)
[2020-04-10 16:23] LABS: POTASSIUM 3.1 MMOL/L (3.5-5.1)
--- NOTE | 2020-04-10 16:35 | NUR ---
Patient transported via gurney to CT. RNx2,RT, and transport staff assisted. Patient tolerated procedure well
--- NOTE | 2020-04-10 17:11 | NUR ---
Called and spoke with Dr. Da Silva via telephone to notify contraindication with Zyvox and Fentanyl. Per Dr. Da Silva, fentanyl to be d/c'd. RN asked for alternative pain rx, no new orders at this time. PBNP>17,000, new order to d/c 1/2 NS. Will continue to monitor.
[2020-04-10] MEDS: potassium Cl 20mEq/100mL bag 100 ML IV PRN ×2 (17:14→18:13)
[2020-04-10] MEDS: sodium phosphate inj. 15 MMOL in dextrose 5%-water 250 ML IV PRN (19:51)
[2020-04-10] MEDS: linezolid 600mg/300ml PREMIX 300 ML IV SCH (20:01)
[2020-04-10] MEDS: morphine 4 MG/ML inj SYRINge IV PRN (20:06)
[2020-04-10 20:45] LABS: OXYGEN SATURATION (MIXED VEN) 63.4 % (60-80); PO2 MIXED VENOUS (TEMP COR) 33.9 mmHg (35-46)
[2020-04-10] MEDS ORDERED: sennosides/docusate sodium tablet PO SCH (21:00)
[2020-04-10] MEDS: atorvastatin 20mg tablet PO SCH (22:26)
[2020-04-11] VITALS (23 sets, daily range): BP systolic 112–164; BP diastolic 30–72
[2020-04-11 00:08] LABS: ALANINE AMINOTRANSFERASE 18 U/L (12-78); ALBUMIN 2.3 G/DL (3.4-5.0); ALBUMIN/GLOBULIN RATIO 0.8 (1.1-1.5); ALKALINE PHOSPHATASE 38 IU/L (46-116); ANION GAP 9 (8-16); ASPARTATE AMINO TRANSFERASE 17 U/L (10-37); BILIRUBIN,TOTAL 0.8 MG/DL (0.1-1.0); BLOOD UREA NITROGEN 16 MG/DL (7-18); BUN/CREATININE RATIO 24.2 (6.6-38.0); CALCIUM 8.1 MG/DL (8.5-10.1); CHLORIDE 111 MMOL/L (99-107); CREATININE 0.66 MG/DL (0.40-0.90); GLUCOSE 167 MG/DL (70-104); POTASSIUM 3.6 MMOL/L (3.5-5.1); SODIUM 143 MMOL/L (135-145); TOTAL CARBON DIOXIDE 22.6 MMOL/L (24-32); TOTAL PROTEIN 5.2 G/DL (6.4-8.2); eGFR 86 ML/MIN
[2020-04-11 00:11] LABS: PHOSPHORUS 1.6 MG/DL (2.3-4.5); TROPONIN I 0.16 NG/ML (0.0-0.05)
[2020-04-11 02:33] LABS: EOSINOPHILS % (AUTO) 0.2 % (0-6); HEMOGLOBIN 8.3 g/dl (12.0-16.0); MEAN CORPUSCULAR HEMOGLOBIN 28.6 PG (27.0-31.0); MONOCYTES # (AUTO) 1.5 X10'3 (0-0.9)
[2020-04-11 02:35] LABS: BASOPHILS % (AUTO) 0 % (0-1); HEMATOCRIT 24.9 % (35.0-45.0); LYMPHOCYTES # (AUTO) 1.7 X10'3 (1.1-4.8); LYMPHOCYTES % (AUTO) 9.4 % (21-51); MEAN CORPUSCULAR HGB CONC 33.4 g/dL (33.0-36.5); MEAN CORPUSCULAR VOLUME 85.7 FL (78-98); MONOCYTES % (AUTO) 8.2 % (2-12); NEUTROPHILS # (AUTO) 15.1 X10'3 (1.8-7.7); NEUTROPHILS % (AUTO) 82.2 % (42-75); PLATELET COUNT 217 X10'3 (140-440); RED CELL DISTRIBUTION WIDTH 15.3 % (11.5-14.5); WHITE BLOOD COUNT 18.3 X10'3 (4.5-11.0)
[2020-04-11 02:47] LABS: PARTIAL THROMBOPLASTIN TIME 39 SECONDS (22-32)
[2020-04-11] MEDS: ipratropium/albuterol 3ml nebule NEB SCH ×6 (02:51→23:07)
[2020-04-11 02:52] LABS: ALANINE AMINOTRANSFERASE 20 U/L (12-78); ALBUMIN 2.3 G/DL (3.4-5.0); ALBUMIN/GLOBULIN RATIO 0.8 (1.1-1.5); ALKALINE PHOSPHATASE 37 IU/L (46-116); ANION GAP 9 (8-16); ASPARTATE AMINO TRANSFERASE 16 U/L (10-37); BILIRUBIN,TOTAL 0.9 MG/DL (0.1-1.0); BLOOD UREA NITROGEN 17 MG/DL (7-18); BUN/CREATININE RATIO 26.2 (6.6-38.0); CALCIUM 8.4 MG/DL (8.5-10.1); CHLORIDE 111 MMOL/L (99-107); CREATININE 0.65 MG/DL (0.40-0.90); GLUCOSE 150 MG/DL (70-104); MAGNESIUM 1.5 MG/DL (1.5-2.4); PHOSPHORUS 1.6 MG/DL (2.3-4.5); POTASSIUM 3.5 MMOL/L (3.5-5.1); SODIUM 143 MMOL/L (135-145); TOTAL CARBON DIOXIDE 22.6 MMOL/L (24-32); TOTAL PROTEIN 5.2 G/DL (6.4-8.2); eGFR 87 ML/MIN
[2020-04-11 03:14] LABS: PLATELET ESTIMATE NORMAL; TOTAL CELLS COUNTED 100
[2020-04-11 04:10] LABS: ABG BASE EXCESS -4.1 mmol/L (-2.0-2.0); ABG HCO3 19.4 mmol/L (22.0-26.0); ABG OXYGEN SATURATION 91.1 % (94-97); ABG PCO2 (T) 30.3 mmHg (32.0-45.0); ABG PO2 (T) 60.4 mmHg (75.0-100.0); FMetHb 0.3 % (0.0-1.5); FO2Hb 90.8 % (94-97); PATIENT TEMPERATURE 37.4; PEEP 5 cm H2O; RESPIRATORY RATE 15 b/min; TIDAL VOLUME 450 mL; TOTAL HEMOGLOBIN 8.8 G/dl (12.0-16.0)
[2020-04-11 04:10] LABS: OXYGEN SATURATION (MIXED VEN) 59.9 % (60-80); PO2 MIXED VENOUS (TEMP COR) 31.1 mmHg (35-46)
--- NOTE | 2020-04-11 06:40 | NUR ---
Problems reprioritized. Patient report given, questions answered & plan of care reviewed with Toribio DELCID.
[2020-04-11] MEDS: metroNIDAZOLE-Flagyl 750mg/NS 150 ML IV SCH (06:43)
[2020-04-11] MEDS: K, MAG and/or Phos replacement - Verify level? MC SCH (08:00)
[2020-04-11] MEDS: docusate sod 100mg capsule PO SCH (08:00)
[2020-04-11] MEDS ORDERED: linagliptin 5mg tablet PO SCH (08:00)
[2020-04-11] MEDS: pantoprazole 40 MG vial IV SCH (08:39)
[2020-04-11] MEDS: lactobacillus rhamnosus 10,000 MMU CELLS/CAPSULE PO SCH ×2 (08:39→20:25)
[2020-04-11] MEDS: multivitamins, therapeutics tablet PO SCH (08:39)
[2020-04-11] MEDS: linezolid 600mg/300ml PREMIX 300 ML IV SCH ×2 (08:39→20:24)
[2020-04-11] MEDS: mineral oil/petrolatum, white cream 113gm jar TP SCH ×2 (08:40→20:26)
[2020-04-11] MEDS: nystatin 15 GM powder TP SCH ×2 (08:40→20:26)
[2020-04-11] MEDS: midazolam 100mg in NS 100ml 100 ML IV PRN ×2 (09:26→20:24)
[2020-04-11] MEDS: sertraline 50mg tablet PO SCH (11:23)
[2020-04-11] MEDS: sodium phosphate inj. 15 MMOL in dextrose 5%-water 250 ML IV PRN (11:29)
[2020-04-11] MEDS ORDERED: metoclopramide 5 mg/ml inj IV PRN (14:00)
[2020-04-11] MEDS: furosemide 10 MG/1 ML 10ml inj IV SCH (15:43)
--- NOTE | 2020-04-11 15:51 | NUR ---
Tube feeding consult: Patient is intubated and sedated s/p ORIF left tibia. No pressors. Pt admit w/ sepsis r/t UTI, HTN, hyperlipidemia s/p ORIF for L tibia fx from fall per MD. Prior to intubation Pt PO 0-25% past 4 days not meeting needs. Last BM 04/09. Rec: 1. Continuous tube feeding per OG tube using Vital High Protein starting at 20 ml/hr and advance by 30 ml q 8 hours to goal rate of 65 ml/hr. Will provide total 2160 ml volume 2160 calories, 189 g protein, 1814 ml water. 2. Patient has weeping edema per MD. Receiving lasix. additional water flush per MD 3. routine bowel care 4. Prealbumin q thursday/ 5. daily wts Addendum: 04/11/20 at [address] Amended: Links added.
--- NOTE | 2020-04-11 16:03 | NUR ---
Tube feeding consult: Patient is intubated and sedated s/p ORIF left tibia. No pressors. Pt admit w/ sepsis r/t UTI, HTN, hyperlipidemia s/p ORIF for L tibia fx from fall per MD. Prior to intubation Pt PO 0-25% past 4 days not meeting needs. Last BM 04/09. Rec: 1. Continuous tube feeding per OG tube using Vital High Protein starting at 20 ml/hr and advance by 30 ml q 8 hours to goal rate of 65 ml/hr. Will provide total 2160 ml volume 2160 calories, 189 g protein, 1814 ml water. 2. Patient has weeping edema per MD. Receiving lasix. additional water flush per MD 3. routine bowel care 4. Prealbumin q thursday/ 5. daily wts Addendum: 04/11/20 at [address] Amended: Links added.
[2020-04-11 17:20] LABS: CLARITY,URINE CLEAR (Clear); COLOR,URINE STRAW (Yellow); EOSINOPHILS # (AUTO) 0.1 X10'3 (0-0.9); GLUCOSE, URINE NEGATIVE (Neg); KETONES,URINE NEGATIVE (Neg); LEUKOCYTE ESTERASE ,URINE TRACE (Neg); MEAN CORPUSCULAR HEMOGLOBIN 28.6 PG (27.0-31.0); NITRITES, URINE NEGATIVE (Neg); OCCULT BLOOD,URINE MODERATE (Neg); PH,URINE 5.5 (4.8-8.0); PROTEIN,URINE NEGATIVE (Neg); RED BLOOD COUNT 3.03 X10'6 (4.20-5.60); UROBILINOGEN,URINE 0.2 E.U/dL (0.2-1.0)
[2020-04-11 17:22] LABS: BASOPHILS % (AUTO) 0.1 % (0-1); EOSINOPHILS % (AUTO) 0.3 % (0-6); HEMATOCRIT 26.2 % (35.0-45.0); HEMOGLOBIN 8.6 g/dl (12.0-16.0); LYMPHOCYTES # (AUTO) 1.7 X10'3 (1.1-4.8); LYMPHOCYTES % (AUTO) 9.3 % (21-51); MEAN CORPUSCULAR VOLUME 86.5 FL (78-98); MEAN PLATELET VOLUME 8.2 FL (7.4-10.4); MONOCYTES # (AUTO) 1.2 X10'3 (0-0.9); MONOCYTES % (AUTO) 6.4 % (2-12); NEUTROPHILS # (AUTO) 15.7 X10'3 (1.8-7.7); NEUTROPHILS % (AUTO) 83.9 % (42-75); PLATELET COUNT 232 X10'3 (140-440); RED CELL DISTRIBUTION WIDTH 15.3 % (11.5-14.5); WHITE BLOOD COUNT 18.8 X10'3 (4.5-11.0)
[2020-04-11 17:35] LABS: UA COLLECTION TYPE NON-SPECIFIED
[2020-04-11 17:36] LABS: BACTERIA,URINE FEW /HPF (Neg); HYALINE CASTS 0-3 /LPF (NEGATIVE); SQUAMOUS EPITHELIAL CELL,UR FEW /LPF (FEW); WBC,URINE 0-4 /HPF (0-4)
[2020-04-11 18:54] LABS: NUCLEATED RED BLOOD CELLS 4 /100WBC (0-0); TOTAL CELLS COUNTED 100
[2020-04-11 18:56] LABS: ANISOCYTOSIS 2+; ELLIPTOCYTES 1+; MICROCYTOSIS FEW; PLATELET ESTIMATE NORMAL; POLYCHROMASIA 1+
[2020-04-11] MEDS ORDERED: magnesium hydroxide 30ml (MOM) UD suspension NG PRN (19:17)
[2020-04-11] MEDS ORDERED: sennosides 8.6mg tablet NG PRN (19:20)
[2020-04-11] MEDS: sennosides/docusate sodium tablet NG SCH (20:25)
[2020-04-11] MEDS: atorvastatin 20mg tablet NG SCH (20:25)
[2020-04-11] MEDS: docusate sodium 100mg/10ml UD cup NG SCH (20:25)
[2020-04-11] MEDS: apixaban 2.5mg tablet NG SCH (20:26)
[2020-04-12] VITALS (24 sets, daily range): BP systolic 103–150; BP diastolic 31–59
[2020-04-12] MEDS: furosemide 10 MG/1 ML 10ml inj IV SCH ×2 (00:10→07:19)
[2020-04-12] MEDS: ipratropium/albuterol 3ml nebule NEB SCH ×6 (03:28→23:16)
[2020-04-12 03:35] LABS: EOSINOPHILS # (AUTO) 0.1 X10'3 (0-0.9); LYMPHOCYTES # (AUTO) 1.7 X10'3 (1.1-4.8); MONOCYTES # (AUTO) 1.2 X10'3 (0-0.9); NEUTROPHILS # (AUTO) 17.1 X10'3 (1.8-7.7)
[2020-04-12 03:37] LABS: BASOPHILS % (AUTO) 0.2 % (0-1); EOSINOPHILS % (AUTO) 0.6 % (0-6); HEMATOCRIT 26.7 % (35.0-45.0); HEMOGLOBIN 8.8 g/dl (12.0-16.0); LYMPHOCYTES % (AUTO) 8.5 % (21-51); MEAN CORPUSCULAR HEMOGLOBIN 28.2 PG (27.0-31.0); MEAN CORPUSCULAR HGB CONC 32.9 g/dL (33.0-36.5); MEAN CORPUSCULAR VOLUME 85.7 FL (78-98); MEAN PLATELET VOLUME 8.3 FL (7.4-10.4); MONOCYTES % (AUTO) 6.2 % (2-12); NEUTROPHILS % (AUTO) 84.5 % (42-75); PLATELET COUNT 264 X10'3 (140-440); RED BLOOD COUNT 3.11 X10'6 (4.20-5.60); RED CELL DISTRIBUTION WIDTH 15.2 % (11.5-14.5); WHITE BLOOD COUNT 20.2 X10'3 (4.5-11.0)
[2020-04-12 03:40] LABS: ABG BASE EXCESS -0.4 mmol/L (-2.0-2.0); ABG HCO3 21.6 mmol/L (22.0-26.0); ABG OXYGEN SATURATION 92.6 % (94-97); ABG PCO2 (T) 27.2 mmHg (32.0-45.0); ABG PO2 (T) 63.9 mmHg (75.0-100.0); ALLEN'S TEST POSITIVE; FCOHb 0.3 % (0.0-3.9); FMetHb 0.3 % (0.0-1.5); PATIENT TEMPERATURE 37.6; RESPIRATORY RATE 15 b/min; TIDAL VOLUME 450 mL; TOTAL HEMOGLOBIN 9.4 G/dl (12.0-16.0)
[2020-04-12 03:48] LABS: ALBUMIN 2.1 G/DL (3.4-5.0); ANION GAP 9 (8-16); BLOOD UREA NITROGEN 14 MG/DL (7-18); BUN/CREATININE RATIO 18.9 (6.6-38.0); CALCIUM 7.5 MG/DL (8.5-10.1); CHLORIDE 110 MMOL/L (99-107); CREATININE 0.74 MG/DL (0.40-0.90); GLUCOSE 177 MG/DL (70-104); MAGNESIUM 1.2 MG/DL (1.5-2.4); PARTIAL THROMBOPLASTIN TIME 37 SECONDS (22-32); PHOSPHORUS 1.8 MG/DL (2.3-4.5); PREALBUMIN 9.2 MG/DL (19-36); SODIUM 144 MMOL/L (135-145); TOTAL CARBON DIOXIDE 25.4 MMOL/L (24-32); eGFR 75 ML/MIN
[2020-04-12 03:49] LABS: POTASSIUM 2.7 MMOL/L (3.5-5.1)
[2020-04-12 04:06] LABS: ANISOCYTOSIS 2+; NUCLEATED RED BLOOD CELLS 3 /100WBC (0-0); PLATELET ESTIMATE NORMAL; TOTAL CELLS COUNTED 100
[2020-04-12 04:07] LABS: ELLIPTOCYTES 1+; POLYCHROMASIA 1+
[2020-04-12] MEDS: potassium Cl 20mEq/100mL bag 100 ML IV PRN ×6 (04:44→23:09)
[2020-04-12] MEDS: sodium phosphate inj. 15 MMOL in dextrose 5%-water 250 ML IV PRN ×2 (04:58→22:08)
[2020-04-12] MEDS: MULTIVIT-MIN/FERROUS GLUCONATE 9 MG/15 ML LIQUID NG SCH (07:17)
[2020-04-12] MEDS: apixaban 2.5mg tablet NG SCH ×2 (07:18→18:12)
[2020-04-12] MEDS: sertraline 50mg tablet NG SCH (07:18)
[2020-04-12] MEDS: linagliptin 5mg tablet NG SCH (07:18)
[2020-04-12] MEDS: lactobacillus rhamnosus 10,000 MMU CELLS/CAPSULE PO SCH ×2 (07:18→19:38)
[2020-04-12] MEDS: pantoprazole 40 MG vial IV SCH (07:19)
[2020-04-12] MEDS: morphine 4 MG/ML inj SYRINge IV PRN (07:20)
[2020-04-12] MEDS: linezolid 600mg/300ml PREMIX 300 ML IV SCH ×2 (07:20→19:38)
[2020-04-12] MEDS: nystatin 15 GM powder TP SCH ×2 (07:20→19:39)
[2020-04-12] MEDS: mineral oil/petrolatum, white cream 113gm jar TP SCH ×2 (07:20→19:39)
[2020-04-12] MEDS: docusate sodium 100mg/10ml UD cup NG SCH ×2 (07:22→19:38)
[2020-04-12] MEDS ORDERED: fluconazole-Diflucan 200mg/NS 100 ML IV SCH (08:00)
[2020-04-12] MEDS: K, MAG and/or Phos replacement - Verify level? MC SCH ×2 (08:00→15:20)
[2020-04-12] MEDS: midazolam 100mg in NS 100ml 100 ML IV PRN (08:22)
[2020-04-12] MEDS ORDERED: dextrose 50%-water 50ml dispensing syringe IV PRN ×2 (09:40)
[2020-04-12] MEDS ORDERED: MESSAGE TO PHARMACY PO ONE (09:40)
[2020-04-12] MEDS ORDERED: dexmedetomidine inj. 400 MCG in normal saline 100ml IV soln 100 ML IV PRN (11:20)
[2020-04-12] MEDS ORDERED: furosemide inj 100 ML IV SCH (11:20)
[2020-04-12] MEDS ORDERED: furosemide 1,000 MG in NS 250ml IV soln IV SCH ×2 (12:15→12:27)
[2020-04-12] MEDS ORDERED: lactulose 20gm/30ml cup NG PRN (12:50)
[2020-04-12] MEDS ORDERED: polyethylene glycol 3350 17gm powd pack PO PRN (12:50)
[2020-04-12] MEDS: insulin regular, human U-100 3ml vial - multi-dose SQ SCH ×2 (14:49→20:16)
[2020-04-12] MEDS ORDERED: sodium phosphate inj. 30 MMOL in dextrose 5%-water 250 ML IV PRN (15:20)
[2020-04-12] MEDS ORDERED: magnesium 4gm in 100ml NS 100 ML IV PRN (15:20)
[2020-04-12] MEDS ORDERED: sodium phosphate inj. 15 MMOL in dextrose 5%-water 250 ML IV PRN (15:20)
[2020-04-12 16:01] LABS: OXYGEN SATURATION (MIXED VEN) 55.5 % (60-80); PO2 MIXED VENOUS (TEMP COR) 29.8 mmHg (35-46)
[2020-04-12] MEDS: DOBUTamine-DoBUTrex 500mg/D5W 250 ML IV SCH (16:42)
--- NOTE | 2020-04-12 16:44 | NUR ---
Notified MD of critical mixed venous; orders to start dobutamine drip
[2020-04-12] MEDS: morphine/NS 100mg/100ml bag 100 ML IV SCH (17:29)
[2020-04-12 19:46] LABS: ANION GAP 10 (8-16); BLOOD UREA NITROGEN 15 MG/DL (7-18); BUN/CREATININE RATIO 18.5 (6.6-38.0); CALCIUM 7.2 MG/DL (8.5-10.1); CHLORIDE 110 MMOL/L (99-107); CREATININE 0.81 MG/DL (0.40-0.90); GLUCOSE 208 MG/DL (70-104); PHOSPHORUS 2.1 MG/DL (2.3-4.5); POTASSIUM 3.3 MMOL/L (3.5-5.1); SODIUM 144 MMOL/L (135-145); TOTAL CARBON DIOXIDE 24.5 MMOL/L (24-32); eGFR 68 ML/MIN
[2020-04-12] MEDS: sennosides/docusate sodium tablet NG SCH (20:10)
[2020-04-12] MEDS: atorvastatin 20mg tablet NG SCH (20:10)
[2020-04-12] MEDS: insulin glargine (Lantus) pen - multi-dose SQ SCH (20:17)
[2020-04-13] VITALS (30 sets, daily range): BP systolic 95–151; BP diastolic 26–52
[2020-04-13] MEDS: midazolam 100mg in NS 100ml 100 ML IV PRN (00:12)
[2020-04-13] MEDS ORDERED: albumin (human) 25% 100 ML IV solution IV ONE (01:30)
[2020-04-13] MEDS: insulin regular, human U-100 3ml vial - multi-dose SQ SCH ×4 (02:42→20:46)
[2020-04-13 02:49] LABS: BASOPHILS % (AUTO) 0.1 % (0-1); EOSINOPHILS # (AUTO) 0.1 X10'3 (0-0.9); LYMPHOCYTES # (AUTO) 1.4 X10'3 (1.1-4.8); MEAN PLATELET VOLUME 8.2 FL (7.4-10.4); NEUTROPHILS # (AUTO) 15.4 X10'3 (1.8-7.7); WHITE BLOOD COUNT 18.1 X10'3 (4.5-11.0)
[2020-04-13 02:51] LABS: EOSINOPHILS % (AUTO) 0.8 % (0-6); HEMATOCRIT 23.2 % (35.0-45.0); HEMOGLOBIN 7.7 g/dl (12.0-16.0); LYMPHOCYTES % (AUTO) 7.7 % (21-51); MEAN CORPUSCULAR HEMOGLOBIN 28.9 PG (27.0-31.0); MEAN CORPUSCULAR HGB CONC 33.2 g/dL (33.0-36.5); MEAN CORPUSCULAR VOLUME 87.3 FL (78-98); MONOCYTES # (AUTO) 1.2 X10'3 (0-0.9); MONOCYTES % (AUTO) 6.4 % (2-12); PLATELET COUNT 201 X10'3 (140-440); RED BLOOD COUNT 2.66 X10'6 (4.20-5.60); RED CELL DISTRIBUTION WIDTH 15.8 % (11.5-14.5)
[2020-04-13 03:03] LABS: ALANINE AMINOTRANSFERASE 16 U/L (12-78); ALBUMIN/GLOBULIN RATIO 1.3 (1.1-1.5); ALKALINE PHOSPHATASE 34 IU/L (46-116); ANION GAP 11 (8-16); ASPARTATE AMINO TRANSFERASE 13 U/L (10-37); BLOOD UREA NITROGEN 16 MG/DL (7-18); BUN/CREATININE RATIO 21.6 (6.6-38.0); CALCIUM 7.1 MG/DL (8.5-10.1); CHLORIDE 108 MMOL/L (99-107); CREATININE 0.74 MG/DL (0.40-0.90); GLUCOSE 165 MG/DL (70-104); MAGNESIUM 1.8 MG/DL (1.5-2.4); PHOSPHORUS 3.4 MG/DL (2.3-4.5); POTASSIUM 3.4 MMOL/L (3.5-5.1); SODIUM 145 MMOL/L (135-145); TOTAL CARBON DIOXIDE 26.5 MMOL/L (24-32); TOTAL PROTEIN 5.4 G/DL (6.4-8.2); eGFR 75 ML/MIN
[2020-04-13 03:06] LABS: PARTIAL THROMBOPLASTIN TIME 36 SECONDS (22-32)
[2020-04-13] MEDS: ipratropium/albuterol 3ml nebule NEB SCH ×6 (03:21→23:10)
[2020-04-13 03:28] LABS: ANISOCYTOSIS 2+; ELLIPTOCYTES 1+; NUCLEATED RED BLOOD CELLS 1 /100WBC (0-0); PLATELET ESTIMATE NORMAL; POLYCHROMASIA 1+; SCHISTOCYTES 1+; TOTAL CELLS COUNTED 100
[2020-04-13 03:51] LABS: ABG BASE EXCESS -2.7 mmol/L (-2.0-2.0); ABG HCO3 21.6 mmol/L (22.0-26.0); ABG OXYGEN SATURATION 85.1 % (94-97); ABG PCO2 (T) 35.4 mmHg (32.0-45.0); ABG PO2 (T) 52.1 mmHg (75.0-100.0); ALLEN'S TEST POSITIVE; FCOHb 1.4 % (0.0-3.9); FMetHb 0.1 % (0.0-1.5); FO2Hb 83.8 % (94-97); PATIENT TEMPERATURE 37.2; PEEP 5 cm H2O; RESPIRATORY RATE 15 b/min; TIDAL VOLUME 450 mL; TOTAL HEMOGLOBIN 8.4 G/dl (12.0-16.0)
[2020-04-13] MEDS: potassium Cl 20mEq/100mL bag 100 ML IV PRN ×2 (04:35→05:50)
[2020-04-13] MEDS: DOBUTamine-DoBUTrex 500mg/D5W 250 ML IV SCH ×3 (05:51→23:51)
--- NOTE | 2020-04-13 06:00 | NUR ---
RN Note -Shift Summary No neuro changes. Decreased urine output on lasix drip, now getting 30 to 50 ml per hour. Decreasing blood pressure. Started levophed. Diastolic in the 20's. Rahul Lei notified, 200 ml of albumin ordered. Increased O2 demand. PO2 on ABG 51.4, pH 7. Worsening chest x-ray. FiO2 up to 50%. Rahul Lei notified.
--- NOTE | 2020-04-13 06:15 | NUR ---
Patient in room ICU 2041. I have received report from RN and had the opportunity to ask questions and assume patient care.
[2020-04-13] MEDS: K, MAG and/or Phos replacement - Verify level? MC SCH ×2 (08:00)
[2020-04-13] MEDS: MULTIVIT-MIN/FERROUS GLUCONATE 9 MG/15 ML LIQUID NG SCH (09:09)
[2020-04-13] MEDS: docusate sodium 100mg/10ml UD cup NG SCH ×2 (09:09→19:46)
[2020-04-13] MEDS: pantoprazole 40 MG vial IV SCH (09:09)
[2020-04-13] MEDS: linagliptin 5mg tablet NG SCH (09:09)
[2020-04-13] MEDS: lactobacillus rhamnosus 10,000 MMU CELLS/CAPSULE PO SCH ×2 (09:09→19:47)
[2020-04-13] MEDS: sertraline 50mg tablet NG SCH (09:09)
[2020-04-13] MEDS: linezolid 600mg/300ml PREMIX 300 ML IV SCH (09:09)
[2020-04-13] MEDS: nystatin 15 GM powder TP SCH ×2 (09:10→19:47)
[2020-04-13] MEDS: mineral oil/petrolatum, white cream 113gm jar TP SCH ×2 (09:10→19:47)
[2020-04-13 10:33] LABS: ALBUMIN 2.7 G/DL (3.4-5.0); ANION GAP 9 (8-16); BLOOD UREA NITROGEN 19 MG/DL (7-18); BUN/CREATININE RATIO 22.9 (6.6-38.0); CALCIUM 6.6 MG/DL (8.5-10.1); CHLORIDE 110 MMOL/L (99-107); CREATININE 0.83 MG/DL (0.40-0.90); GLUCOSE 202 MG/DL (70-104); MAGNESIUM 1.6 MG/DL (1.5-2.4); PHOSPHORUS 2.9 MG/DL (2.3-4.5); POTASSIUM 3.8 MMOL/L (3.5-5.1); SODIUM 144 MMOL/L (135-145); TOTAL CARBON DIOXIDE 25.1 MMOL/L (24-32); eGFR 66 ML/MIN
[2020-04-13] MEDS: metolazone 2.5mg tablet PO SCH ×2 (12:45→19:46)
[2020-04-13] MEDS: levoFLOXACIN 750MG TABLET NG SCH (13:09)
[2020-04-13] MEDS: acetaminophen 325mg/10.15ml oral unit dose solution NG PRN ×2 (13:09→23:51)
--- NOTE | 2020-04-13 14:40 | NUR ---
Reassessment: Patient is intubated and sedated s/p ORIF left tibia. No pressors. Tolerating tube feeding at goal rate. Pt admit w/ sepsis r/t UTI, HTN, hyperlipidemia s/p ORIF for L tibia fx from fall per MD. Prior to intubation Pt PO 0-25% past 4 days not meeting needs. Last BM 04/09. Rec: 1. Continuous tube feeding per OG tube using Vital High Protein goal rate of 65 ml/hr. Will provide total 2160 ml volume 2160 calories, 189 g protein, 1814 ml water. 2. Patient has weeping edema per MD. Receiving lasix. additional water flush per MD 3. routine bowel care 4. Prealbumin q thursday/ 5. daily wts Addendum: 04/13/20 at [address] Amended: Links added.
[2020-04-13] MEDS: NORepinephrine 8mg/ 250ml NS 250 ML IV PRN ×3 (16:49→23:50)
[2020-04-13] MEDS: BUMETANIDE 0.25 MG/ML IV SCH ×2 (17:03→23:52)
[2020-04-13 17:13] LABS: EOSINOPHILS,BODY FLUID 1 %; GLUCOSE,BODY FLUID 213 MG/DL; LDH,BODY FLUID 141 U/L; LYMPHOCYTES,BODY FLUID 29 %; MONOCYTES,BODY FLUID 29 %; NEUTROPHILS,BODY FLUID 41 %
[2020-04-13 17:17] LABS: BF MESOTHELIAL CELLS FEW; BF RBC COUNT 70 /CU MM; BF WBC COUNT 435 /CU MM (0-1000); BFAPPEAR HAZY; BFCOLOR YELLOW; BFVOLUME 27 ML
[2020-04-13 17:21] LABS: TOTAL PROTEIN,BODY FLUID < 2.0 G/DL
[2020-04-13] MEDS: methylnaltrexone br 12mg/0.6ml inj***SubQ only SQ SCH (18:11)
--- NOTE | 2020-04-13 18:15 | NUR ---
Problems reprioritized. Patient report given, questions answered & plan of care reviewed with RN.
[2020-04-13] MEDS: apixaban 2.5mg tablet NG SCH (19:47)
[2020-04-13] MEDS: atorvastatin 20mg tablet NG SCH (20:12)
[2020-04-13] MEDS: sennosides/docusate sodium tablet NG SCH (20:12)
[2020-04-13] MEDS: insulin glargine (Lantus) pen - multi-dose SQ SCH (20:47)
[2020-04-13 21:34] LABS: ALBUMIN 2.7 G/DL (3.4-5.0); ANION GAP 8 (8-16); BLOOD UREA NITROGEN 19 MG/DL (7-18); BUN/CREATININE RATIO 20.7 (6.6-38.0); CALCIUM 6.9 MG/DL (8.5-10.1); CHLORIDE 107 MMOL/L (99-107); CREATININE 0.92 MG/DL (0.40-0.90); GLUCOSE 238 MG/DL (70-104); MAGNESIUM 1.6 MG/DL (1.5-2.4); PHOSPHORUS 3.2 MG/DL (2.3-4.5); POTASSIUM 3.5 MMOL/L (3.5-5.1); SODIUM 142 MMOL/L (135-145); TOTAL CARBON DIOXIDE 27.1 MMOL/L (24-32); eGFR 58 ML/MIN
[2020-04-13 21:42] LABS: TOTAL PROTEIN,URINE RANDOM 11.8 MG/DL
[2020-04-14] VITALS (24 sets, daily range): BP systolic 111–143; BP diastolic 32–52
[2020-04-14] MEDS: insulin regular, human U-100 3ml vial - multi-dose SQ SCH ×4 (02:51→20:42)
[2020-04-14 02:57] LABS: BASOPHILS # (AUTO) 0.1 X10'3 (0-0.2); BASOPHILS % (AUTO) 0.3 % (0-1); EOSINOPHILS # (AUTO) 0.2 X10'3 (0-0.9); EOSINOPHILS % (AUTO) 0.9 % (0-6); HEMOGLOBIN 9.7 g/dl (12.0-16.0); LYMPHOCYTES # (AUTO) 2.1 X10'3 (1.1-4.8); NEUTROPHILS # (AUTO) 15.7 X10'3 (1.8-7.7); NEUTROPHILS % (AUTO) 80.2 % (42-75); RED CELL DISTRIBUTION WIDTH 16.7 % (11.5-14.5)
[2020-04-14 03:00] LABS: HEMATOCRIT 29.9 % (35.0-45.0); LYMPHOCYTES % (AUTO) 10.7 % (21-51); MEAN CORPUSCULAR HEMOGLOBIN 29.1 PG (27.0-31.0); MEAN CORPUSCULAR HGB CONC 32.3 g/dL (33.0-36.5); MEAN CORPUSCULAR VOLUME 90.1 FL (78-98); MEAN PLATELET VOLUME 8.2 FL (7.4-10.4); MONOCYTES # (AUTO) 1.6 X10'3 (0-0.9); MONOCYTES % (AUTO) 7.9 % (2-12); PLATELET COUNT 245 X10'3 (140-440); RED BLOOD COUNT 3.32 X10'6 (4.20-5.60); WHITE BLOOD COUNT 19.7 X10'3 (4.5-11.0)
[2020-04-14 03:09] LABS: PARTIAL THROMBOPLASTIN TIME 35 SECONDS (22-32)
[2020-04-14 03:10] LABS: ALANINE AMINOTRANSFERASE 17 U/L (12-78); ALBUMIN 2.6 G/DL (3.4-5.0); ALKALINE PHOSPHATASE 41 IU/L (46-116); ANION GAP 6 (8-16); ASPARTATE AMINO TRANSFERASE 11 U/L (10-37); BILIRUBIN,TOTAL 1.2 MG/DL (0.1-1.0); BLOOD UREA NITROGEN 21 MG/DL (7-18); BUN/CREATININE RATIO 21.9 (6.6-38.0); CALCIUM 6.9 MG/DL (8.5-10.1); CHLORIDE 106 MMOL/L (99-107); CREATININE 0.96 MG/DL (0.40-0.90); GLUCOSE 226 MG/DL (70-104); MAGNESIUM 1.5 MG/DL (1.5-2.4); PHOSPHORUS 2.8 MG/DL (2.3-4.5); POTASSIUM 3.2 MMOL/L (3.5-5.1); SODIUM 141 MMOL/L (135-145); TOTAL CARBON DIOXIDE 28.7 MMOL/L (24-32); TOTAL PROTEIN 5.3 G/DL (6.4-8.2); eGFR 56 ML/MIN
[2020-04-14] MEDS: ipratropium/albuterol 3ml nebule NEB SCH ×6 (03:11→22:56)
[2020-04-14 03:25] LABS: ABG BASE EXCESS 0.6 mmol/L (-2.0-2.0); ABG HCO3 25.8 mmol/L (22.0-26.0); ABG OXYGEN SATURATION 87.2 % (94-97); ABG PCO2 (T) 46.1 mmHg (32.0-45.0); ABG PO2 (T) 61.9 mmHg (75.0-100.0); ALLEN'S TEST POSITIVE; FCOHb 0.5 % (0.0-3.9); FMetHb 0.3 % (0.0-1.5); FO2Hb 86.5 % (94-97); PATIENT TEMPERATURE 38.1; PEEP 5 cm H2O; RESPIRATORY RATE 15 b/min; TIDAL VOLUME 450 mL; TOTAL HEMOGLOBIN 10.3 G/dl (12.0-16.0)
[2020-04-14] MEDS: potassium Cl 20mEq/100mL bag 100 ML IV PRN ×2 (04:36→06:42)
[2020-04-14] MEDS: NORepinephrine 8mg/ 250ml NS 250 ML IV PRN ×3 (04:37→20:21)
--- NOTE | 2020-04-14 06:00 | NUR ---
RN Note -Shift Summary No neuro changes. Increased temperature, max 38.2. Unable to wean pressers.
[2020-04-14 06:40] LABS: NUCLEATED RED BLOOD CELLS 6 /100WBC (0-0); PLATELET ESTIMATE NORMAL; TOTAL CELLS COUNTED 100
[2020-04-14 06:41] LABS: ANISOCYTOSIS 1+; ELLIPTOCYTES 1+; POLYCHROMASIA 1+
[2020-04-14] MEDS: docusate sodium 100mg/10ml UD cup NG SCH ×2 (08:00→20:00)
[2020-04-14] MEDS: K, MAG and/or Phos replacement - Verify level? MC SCH ×2 (08:00)
[2020-04-14] MEDS: DOBUTamine-DoBUTrex 500mg/D5W 250 ML IV SCH ×2 (09:40→20:23)
[2020-04-14] MEDS: MULTIVIT-MIN/FERROUS GLUCONATE 9 MG/15 ML LIQUID NG SCH (10:52)
[2020-04-14] MEDS: nystatin 15 GM powder TP SCH ×2 (10:52→20:25)
[2020-04-14] MEDS: apixaban 2.5mg tablet NG SCH ×2 (10:53→20:24)
[2020-04-14] MEDS: metolazone 2.5mg tablet PO SCH ×2 (10:53→20:27)
[2020-04-14] MEDS: linagliptin 5mg tablet NG SCH (10:53)
[2020-04-14] MEDS: lactobacillus rhamnosus 10,000 MMU CELLS/CAPSULE PO SCH ×2 (10:53→20:24)
[2020-04-14] MEDS: pantoprazole 40 MG vial IV SCH (10:54)
[2020-04-14] MEDS: mineral oil/petrolatum, white cream 113gm jar TP SCH ×2 (10:55→20:25)
[2020-04-14] MEDS: BUMETANIDE 0.25 MG/ML IV SCH ×2 (11:00→17:47)
[2020-04-14] MEDS: morphine/NS 100mg/100ml bag 100 ML IV SCH (15:03)
--- NOTE | 2020-04-14 18:30 | NUR ---
Patient in room ICU 2041. I have received report from FARHANA Sam and had the opportunity to ask questions and assume patient care.
[2020-04-14 19:00] LABS: ALBUMIN 2.2 G/DL (3.4-5.0); ANION GAP 3 (8-16); BLOOD UREA NITROGEN 26 MG/DL (7-18); BUN/CREATININE RATIO 32.5 (6.6-38.0); CALCIUM 6.9 MG/DL (8.5-10.1); CHLORIDE 107 MMOL/L (99-107); GLUCOSE 190 MG/DL (70-104); MAGNESIUM 1.4 MG/DL (1.5-2.4); PHOSPHORUS 2.2 MG/DL (2.3-4.5); POTASSIUM 3.1 MMOL/L (3.5-5.1); SODIUM 142 MMOL/L (135-145); eGFR 69 ML/MIN
[2020-04-14] MEDS: sennosides/docusate sodium tablet NG SCH (20:27)
[2020-04-14] MEDS: atorvastatin 20mg tablet NG SCH (20:27)
[2020-04-14] MEDS: insulin glargine (Lantus) pen - multi-dose SQ SCH (20:45)
[2020-04-15] VITALS (24 sets, daily range): BP systolic 97–163; BP diastolic 22–59
[2020-04-15] MEDS: BUMETANIDE 0.25 MG/ML IV SCH ×3 (00:57→15:27)
[2020-04-15] MEDS: mineral oil/petrolatum ophthal oint EACHEYE SCH ×4 (02:00→20:30)
[2020-04-15] MEDS: insulin regular, human U-100 3ml vial - multi-dose SQ SCH ×4 (02:03→21:00)
[2020-04-15 02:08] LABS: EOSINOPHILS # (AUTO) 0.2 X10'3 (0-0.9); NEUTROPHILS # (AUTO) 15.6 X10'3 (1.8-7.7); WHITE BLOOD COUNT 18.8 X10'3 (4.5-11.0)
[2020-04-15 02:10] LABS: BASOPHILS % (AUTO) 0.1 % (0-1); HEMATOCRIT 28.7 % (35.0-45.0); HEMOGLOBIN 9.4 g/dl (12.0-16.0); LYMPHOCYTES # (AUTO) 1.7 X10'3 (1.1-4.8); MEAN CORPUSCULAR HEMOGLOBIN 29.2 PG (27.0-31.0); MEAN CORPUSCULAR HGB CONC 32.8 g/dL (33.0-36.5); MEAN CORPUSCULAR VOLUME 89.1 FL (78-98); MEAN PLATELET VOLUME 8.1 FL (7.4-10.4); MONOCYTES # (AUTO) 1.3 X10'3 (0-0.9); MONOCYTES % (AUTO) 6.9 % (2-12); PLATELET COUNT 216 X10'3 (140-440); RED BLOOD COUNT 3.22 X10'6 (4.20-5.60); RED CELL DISTRIBUTION WIDTH 16.7 % (11.5-14.5)
[2020-04-15 02:14] LABS: PARTIAL THROMBOPLASTIN TIME 35 SECONDS (22-32)
[2020-04-15 02:15] LABS: ALANINE AMINOTRANSFERASE 14 U/L (12-78); ALBUMIN 2.1 G/DL (3.4-5.0); ALBUMIN/GLOBULIN RATIO 0.8 (1.1-1.5); ALKALINE PHOSPHATASE 38 IU/L (46-116); ANION GAP 3 (8-16); ASPARTATE AMINO TRANSFERASE 12 U/L (10-37); BLOOD UREA NITROGEN 26 MG/DL (7-18); BUN/CREATININE RATIO 36.6 (6.6-38.0); CALCIUM 6.7 MG/DL (8.5-10.1); CHLORIDE 107 MMOL/L (99-107); CREATININE 0.71 MG/DL (0.40-0.90); GLUCOSE 161 MG/DL (70-104); MAGNESIUM 1.3 MG/DL (1.5-2.4); SODIUM 143 MMOL/L (135-145); TOTAL CARBON DIOXIDE 32.8 MMOL/L (24-32); TOTAL PROTEIN 4.7 G/DL (6.4-8.2); eGFR 79 ML/MIN
[2020-04-15 02:18] LABS: POTASSIUM 2.6 MMOL/L (3.5-5.1)
[2020-04-15] MEDS: POTASSIUM BICARB 20meq eff tab 20 MEQ TABLET.EFF NG PRN ×3 (02:23→10:37)
[2020-04-15] MEDS: ipratropium/albuterol 3ml nebule NEB SCH ×6 (02:38→23:08)
--- NOTE | 2020-04-15 03:00 | NUR ---
Patient not tolerating supine. Patient rolled for skin check and bed bath, rhythm change to v-paced, decreased oxygen saturation. Skin color to face changed to purple. Deep purple area of skin non blanchable to coccyx/ sacrum. Unable to obtain a picture secondary to patients decline in condition. Optifoam placed.
[2020-04-15 04:11] LABS: ABG BASE EXCESS 7.5 mmol/L (-2.0-2.0); ABG HCO3 31.6 mmol/L (22.0-26.0); ABG OXYGEN SATURATION 93.3 % (94-97); ABG PCO2 (T) 43.6 mmHg (32.0-45.0); ABG PO2 (T) 69.9 mmHg (75.0-100.0); ALLEN'S TEST POSITIVE; FCOHb 0.5 % (0.0-3.9); FMetHb 0.3 % (0.0-1.5); FO2Hb 92.6 % (94-97); PATIENT TEMPERATURE 37.6; PEEP 5 cm H2O; RESPIRATORY RATE 15 b/min; TIDAL VOLUME 450 mL; TOTAL HEMOGLOBIN 10.7 G/dl (12.0-16.0)
[2020-04-15] MEDS: NORepinephrine 8mg/ 250ml NS 250 ML IV PRN ×2 (05:24→15:25)
--- NOTE | 2020-04-15 06:30 | NUR ---
Patient in room ICU 2041. I have received report from Susan DELCID and had the opportunity to ask questions and assume patient care.
[2020-04-15] MEDS ORDERED: magnesium 2GM in 50ml NS 50 ML IV PRN (06:40)
[2020-04-15] MEDS ORDERED: magnesium Cl slow-release 64mg tablet PO PRN (06:40)
[2020-04-15] MEDS ORDERED: magnesium 4gm in 100ml NS 100 ML IV PRN (06:40)
--- NOTE | 2020-04-15 06:48 | NUR ---
Problems reprioritized. Patient report given, questions answered & plan of care reviewed with FARHANA Deshpande.
[2020-04-15] MEDS: pantoprazole 40 MG vial IV SCH (07:26)
[2020-04-15] MEDS: metolazone 2.5mg tablet PO SCH ×2 (07:26→20:30)
[2020-04-15] MEDS: MULTIVIT-MIN/FERROUS GLUCONATE 9 MG/15 ML LIQUID NG SCH (07:26)
[2020-04-15] MEDS: apixaban 2.5mg tablet NG SCH ×2 (07:27→20:30)
[2020-04-15] MEDS: nystatin 15 GM powder TP SCH ×2 (07:27→20:31)
[2020-04-15] MEDS: linagliptin 5mg tablet NG SCH (07:27)
[2020-04-15] MEDS: lactobacillus rhamnosus 10,000 MMU CELLS/CAPSULE PO SCH ×2 (07:27→20:30)
[2020-04-15] MEDS: mineral oil/petrolatum, white cream 113gm jar TP SCH ×2 (07:27→20:31)
[2020-04-15] MEDS: docusate sodium 100mg/10ml UD cup NG SCH ×2 (07:28→20:00)
[2020-04-15] MEDS: methylnaltrexone br 12mg/0.6ml inj***SubQ only SQ SCH (07:28)
[2020-04-15] MEDS: K, MAG and/or Phos replacement - Verify level? MC SCH (07:34)
[2020-04-15] MEDS ORDERED: methylnaltrexone br 12mg/0.6ml inj***SubQ only SQ SCH (08:00)
[2020-04-15] MEDS: acetaminophen 325mg/10.15ml oral unit dose solution NG PRN ×3 (08:40→20:49)
--- NOTE | 2020-04-15 10:29 | NUR ---
Dr. Vazquez aware of pt's temp of 38.2.
[2020-04-15] MEDS: levoFLOXACIN 750MG TABLET NG SCH (10:37)
--- NOTE | 2020-04-15 11:45 | NUR ---
Wound care provided, pics obtained per policy.
--- NOTE | 2020-04-15 12:41 | NUR ---
K and Mag redrawn as both have been replaced this shift. Dr. Kuhn called earlier for an update.
[2020-04-15 12:58] LABS: MAGNESIUM 2.6 MG/DL (1.5-2.4)
[2020-04-15 14:06] LABS: POTASSIUM 3.2 MMOL/L (3.5-5.1)
[2020-04-15] MEDS: potassium Cl 20mEq/100mL bag 100 ML IV PRN ×2 (14:28→15:34)
--- NOTE | 2020-04-15 17:37 | NUR ---
Patient's two daughters called for update.
--- NOTE | 2020-04-15 18:14 | NUR ---
Problems reprioritized. Patient report given, questions answered & plan of care reviewed with Susan DELCID.
--- NOTE | 2020-04-15 18:20 | NUR ---
Patient in room ICU 2041. I have received report from FARHANA Deshpande and had the opportunity to ask questions and assume patient care.
--- NOTE | 2020-04-15 19:31 | NUR ---
Temp. 38.5 ice packs to axilla and groin. RT changed humidifier to non invasive.
[2020-04-15] MEDS: atorvastatin 20mg tablet NG SCH (20:31)
[2020-04-15] MEDS: sennosides/docusate sodium tablet NG SCH (20:31)
[2020-04-15] MEDS: insulin glargine (Lantus) pen - multi-dose SQ SCH (20:59)
--- NOTE | 2020-04-15 21:49 | NUR ---
Patient opens eyes to physical stimuli, grimace to face with care activities. Not following commands or moving extremities.
[2020-04-15 22:18] LABS: MAGNESIUM 1.6 MG/DL (1.5-2.4)
[2020-04-15] MEDS: morphine/NS 100mg/100ml bag 100 ML IV SCH (22:56)
--- NOTE | 2020-04-15 23:00 | NUR ---
During devin care and rectal tube check. Patient found to have a open and draining wound to perineum, with copious amount of purulent drainage.
[2020-04-16] VITALS (22 sets, daily range): BP systolic 99–140; BP diastolic 36–55
[2020-04-16] MEDS: BUMETANIDE 0.25 MG/ML IV SCH ×3 (00:49→15:55)
[2020-04-16] MEDS: mineral oil/petrolatum ophthal oint EACHEYE SCH ×4 (01:35→20:00)
[2020-04-16] MEDS: insulin regular, human U-100 3ml vial - multi-dose SQ SCH ×4 (01:38→21:06)
[2020-04-16 01:44] LABS: BASOPHILS # (AUTO) 0.1 X10'3 (0-0.2); BASOPHILS % (AUTO) 0.3 % (0-1); EOSINOPHILS # (AUTO) 0.2 X10'3 (0-0.9); EOSINOPHILS % (AUTO) 0.9 % (0-6); HEMATOCRIT 28.5 % (35.0-45.0); HEMOGLOBIN 9.6 g/dl (12.0-16.0); LYMPHOCYTES # (AUTO) 1.5 X10'3 (1.1-4.8); LYMPHOCYTES % (AUTO) 8.7 % (21-51); MEAN CORPUSCULAR HEMOGLOBIN 30.3 PG (27.0-31.0); MEAN CORPUSCULAR HGB CONC 33.5 g/dL (33.0-36.5); MEAN CORPUSCULAR VOLUME 90.3 FL (78-98); MEAN PLATELET VOLUME 8.3 FL (7.4-10.4); MONOCYTES # (AUTO) 1.3 X10'3 (0-0.9); MONOCYTES % (AUTO) 7.5 % (2-12); NEUTROPHILS # (AUTO) 14.7 X10'3 (1.8-7.7); NEUTROPHILS % (AUTO) 82.6 % (42-75); PLATELET COUNT 216 X10'3 (140-440); RED BLOOD COUNT 3.16 X10'6 (4.20-5.60); RED CELL DISTRIBUTION WIDTH 16.5 % (11.5-14.5); WHITE BLOOD COUNT 17.8 X10'3 (4.5-11.0)
[2020-04-16 02:03] LABS: ALANINE AMINOTRANSFERASE 15 U/L (12-78); ALBUMIN/GLOBULIN RATIO 0.7 (1.1-1.5); ALKALINE PHOSPHATASE 43 IU/L (46-116); ANION GAP 0 (8-16); ASPARTATE AMINO TRANSFERASE 23 U/L (10-37); BILIRUBIN,TOTAL 0.9 MG/DL (0.1-1.0); BLOOD UREA NITROGEN 32 MG/DL (7-18); BUN/CREATININE RATIO 38.6 (6.6-38.0); CALCIUM 7.5 MG/DL (8.5-10.1); CHLORIDE 104 MMOL/L (99-107); CREATININE 0.83 MG/DL (0.40-0.90); GLUCOSE 150 MG/DL (70-104); PHOSPHORUS 2.1 MG/DL (2.3-4.5); POTASSIUM 3.6 MMOL/L (3.5-5.1); PREALBUMIN 9.4 MG/DL (19-36); SODIUM 142 MMOL/L (135-145); TOTAL CARBON DIOXIDE 37.7 MMOL/L (24-32); eGFR 66 ML/MIN
[2020-04-16 02:13] LABS: PARTIAL THROMBOPLASTIN TIME 32 SECONDS (22-32)
[2020-04-16] MEDS: NORepinephrine 8mg/ 250ml NS 250 ML IV PRN ×2 (02:16→12:03)
[2020-04-16] MEDS: ipratropium/albuterol 3ml nebule NEB SCH ×6 (04:01→22:59)
[2020-04-16 04:16] LABS: ABG BASE EXCESS 8.5 mmol/L (-2.0-2.0); ABG HCO3 31.8 mmol/L (22.0-26.0); ABG OXYGEN SATURATION 94.5 % (94-97); ABG PCO2 (T) 39.9 mmHg (32.0-45.0); ALLEN'S TEST POSITIVE; FCOHb 0.3 % (0.0-3.9); FMetHb 0.3 % (0.0-1.5); FO2Hb 93.9 % (94-97); PATIENT TEMPERATURE 37.6; TIDAL VOLUME 450 mL; TOTAL HEMOGLOBIN 10.1 G/dl (12.0-16.0)
--- NOTE | 2020-04-16 06:21 | NUR ---
Problems reprioritized. Patient report given, questions answered & plan of care reviewed with FARHANA Deshpande.
[2020-04-16] MEDS: K, MAG and/or Phos replacement - Verify level? MC SCH (08:00)
[2020-04-16] MEDS: linagliptin 5mg tablet NG SCH (08:19)
[2020-04-16] MEDS: MULTIVIT-MIN/FERROUS GLUCONATE 9 MG/15 ML LIQUID NG SCH (08:19)
[2020-04-16] MEDS: pantoprazole 40 MG vial IV SCH (08:19)
[2020-04-16] MEDS: metolazone 2.5mg tablet PO SCH ×2 (08:19→20:58)
[2020-04-16] MEDS: docusate sodium 100mg/10ml UD cup NG SCH ×2 (08:19→20:58)
[2020-04-16] MEDS: apixaban 2.5mg tablet NG SCH ×2 (08:20→20:58)
[2020-04-16] MEDS: mineral oil/petrolatum, white cream 113gm jar TP SCH ×2 (08:20→20:58)
[2020-04-16] MEDS: lactobacillus rhamnosus 10,000 MMU CELLS/CAPSULE PO SCH ×2 (08:20→20:58)
[2020-04-16] MEDS: nystatin 15 GM powder TP SCH ×2 (08:20→20:59)
[2020-04-16] MEDS: spironolactone 25 MG tablet PO SCH ×2 (15:55→20:59)
[2020-04-16] MEDS: acetaminophen 325mg/10.15ml oral unit dose solution NG PRN (15:56)
--- NOTE | 2020-04-16 17:33 | NUR ---
Dr. Da Silva at bedside. New order to d/c sedation medication, check patients neurological status without. Will continue to monitor.
[2020-04-16] MEDS: sennosides/docusate sodium tablet NG SCH (20:59)
[2020-04-16] MEDS: atorvastatin 20mg tablet NG SCH (20:59)
[2020-04-16] MEDS: insulin glargine (Lantus) pen - multi-dose SQ SCH (21:08)
[2020-04-17] VITALS (23 sets, daily range): BP systolic 107–142; BP diastolic 31–56
[2020-04-17] MEDS: mineral oil/petrolatum ophthal oint EACHEYE SCH ×4 (02:00→20:14)
[2020-04-17] MEDS: BUMETANIDE 0.25 MG/ML IV SCH ×3 (02:16→16:54)
[2020-04-17] MEDS: insulin regular, human U-100 3ml vial - multi-dose SQ SCH ×3 (02:46→13:43)
[2020-04-17 02:56] LABS: PHOSPHORUS 3.1 MG/DL (2.3-4.5)
[2020-04-17 03:00] LABS: PARTIAL THROMBOPLASTIN TIME 32 SECONDS (22-32)
[2020-04-17] MEDS: ipratropium/albuterol 3ml nebule NEB SCH ×6 (03:06→23:19)
[2020-04-17 03:07] LABS: BASOPHILS % (AUTO) 0.3 % (0-1); EOSINOPHILS # (AUTO) 0.1 X10'3 (0-0.9); EOSINOPHILS % (AUTO) 0.6 % (0-6); HEMOGLOBIN 8.4 g/dl (12.0-16.0); LYMPHOCYTES # (AUTO) 1.6 X10'3 (1.1-4.8); LYMPHOCYTES % (AUTO) 10.6 % (21-51); MEAN CORPUSCULAR HEMOGLOBIN 29.4 PG (27.0-31.0); MEAN CORPUSCULAR HGB CONC 32.4 g/dL (33.0-36.5); MEAN CORPUSCULAR VOLUME 90.7 FL (78-98); MEAN PLATELET VOLUME 8.4 FL (7.4-10.4); MONOCYTES # (AUTO) 1.4 X10'3 (0-0.9); MONOCYTES % (AUTO) 9.3 % (2-12); NEUTROPHILS # (AUTO) 11.8 X10'3 (1.8-7.7); NEUTROPHILS % (AUTO) 79.2 % (42-75); PLATELET COUNT 164 X10'3 (140-440); RED BLOOD COUNT 2.87 X10'6 (4.20-5.60); RED CELL DISTRIBUTION WIDTH 16.9 % (11.5-14.5); WHITE BLOOD COUNT 14.9 X10'3 (4.5-11.0)
[2020-04-17] MEDS: acetaminophen 325mg/10.15ml oral unit dose solution NG PRN ×2 (03:24→14:19)
[2020-04-17 04:36] LABS: ABG BASE EXCESS 13.1 mmol/L (-2.0-2.0); ABG HCO3 37.1 mmol/L (22.0-26.0); ABG OXYGEN SATURATION 95.5 % (94-97); ABG PCO2 (T) 46.7 mmHg (32.0-45.0); ABG PO2 (T) 82.7 mmHg (75.0-100.0); ALLEN'S TEST POSITIVE; FCOHb 0.2 % (0.0-3.9); FMetHb 0.3 % (0.0-1.5); PATIENT TEMPERATURE 37.9; PEEP 5 cm H2O; RESPIRATORY RATE 13 b/min; TIDAL VOLUME 450 mL; TOTAL HEMOGLOBIN 10.3 G/dl (12.0-16.0)
[2020-04-17 06:21] LABS: ALANINE AMINOTRANSFERASE 16 U/L (12-78); ALBUMIN 1.8 G/DL (3.4-5.0); ALBUMIN/GLOBULIN RATIO 0.6 (1.1-1.5); ALKALINE PHOSPHATASE 39 IU/L (46-116); ANION GAP 4 (8-16); ASPARTATE AMINO TRANSFERASE 24 U/L (10-37); BILIRUBIN,TOTAL 0.7 MG/DL (0.1-1.0); BLOOD UREA NITROGEN 36 MG/DL (7-18); CALCIUM 7.5 MG/DL (8.5-10.1); CHLORIDE 103 MMOL/L (99-107); CREATININE 0.72 MG/DL (0.40-0.90); GLUCOSE 124 MG/DL (70-104); SODIUM 143 MMOL/L (135-145); TOTAL CARBON DIOXIDE 36.1 MMOL/L (24-32); TOTAL PROTEIN 4.9 G/DL (6.4-8.2); eGFR 77 ML/MIN
[2020-04-17 06:23] LABS: POTASSIUM 2.8 MMOL/L (3.5-5.1)
[2020-04-17] MEDS: potassium Cl 20mEq/100mL bag 100 ML IV PRN ×4 (06:27→10:44)
[2020-04-17 06:38] LABS: MAGNESIUM 1.7 MG/DL (1.5-2.4)
--- NOTE | 2020-04-17 06:46 | NUR ---
Critical K+ 2.8. Replacement therapy initiated per critical care protocol. Will continue to monitor.
[2020-04-17] MEDS: metolazone 2.5mg tablet PO SCH ×2 (07:28→20:11)
[2020-04-17] MEDS: methylnaltrexone br 12mg/0.6ml inj***SubQ only SQ SCH (07:28)
[2020-04-17] MEDS: lactobacillus rhamnosus 10,000 MMU CELLS/CAPSULE PO SCH ×2 (07:28→20:11)
[2020-04-17] MEDS: linagliptin 5mg tablet NG SCH (07:28)
[2020-04-17] MEDS: pantoprazole 40 MG vial IV SCH (07:28)
[2020-04-17] MEDS: apixaban 2.5mg tablet NG SCH ×2 (07:29→20:13)
[2020-04-17] MEDS: docusate sodium 100mg/10ml UD cup NG SCH ×2 (07:29→20:11)
[2020-04-17] MEDS: MULTIVIT-MIN/FERROUS GLUCONATE 9 MG/15 ML LIQUID NG SCH (07:29)
[2020-04-17] MEDS: spironolactone 25 MG tablet PO SCH ×3 (07:29→20:06)
[2020-04-17] MEDS: nystatin 15 GM powder TP SCH ×2 (07:30→20:12)
[2020-04-17] MEDS: mineral oil/petrolatum, white cream 113gm jar TP SCH ×2 (07:32→20:12)
[2020-04-17] MEDS: K, MAG and/or Phos replacement - Verify level? MC SCH (08:00)
--- NOTE | 2020-04-17 10:22 | NUR ---
Dr. Da Silva at bedside. New order for Head CT.
[2020-04-17] MEDS: levoFLOXACIN 750MG TABLET NG SCH (10:44)
--- NOTE | 2020-04-17 13:42 | NUR ---
Reassessment: Patient is intubated and sedated s/p ORIF left tibia. No pressors. Tolerating tube feeding at goal rate. Pt admit w/ sepsis r/t UTI, HTN, hyperlipidemia s/p ORIF for L tibia fx from fall per MD. Prior to intubation Pt PO 0-25% past 4 days not meeting needs. Last BM 04/17. Rec: 1. Continuous tube feeding per OG tube using Vital High Protein goal rate of 65 ml/hr. Will provide total 2160 ml volume 2160 calories, 189 g protein, 1814 ml water. 2. Patient has weeping edema per MD. Receiving lasix. additional water flush per MD 3. routine bowel care 4. Prealbumin q thursday/ 5. daily wts Addendum: 04/17/20 at [address] Amended: Links added.
[2020-04-17] MEDS ORDERED: iohexol 300mg/ml 100ml inj. ONE (15:28)
[2020-04-17] MEDS: sennosides/docusate sodium tablet NG SCH (20:07)
[2020-04-17] MEDS: atorvastatin 20mg tablet NG SCH (20:11)
[2020-04-17] MEDS: insulin glargine (Lantus) pen - multi-dose SQ SCH (21:00)
[2020-04-18] VITALS (24 sets, daily range): BP systolic 114–170; BP diastolic 36–69
[2020-04-18] MEDS: BUMETANIDE 0.25 MG/ML IV SCH ×3 (00:58→16:31)
[2020-04-18] MEDS: mineral oil/petrolatum ophthal oint EACHEYE SCH ×4 (01:02→21:11)
[2020-04-18] MEDS: ipratropium/albuterol 3ml nebule NEB SCH ×6 (02:52→22:29)
--- NOTE | 2020-04-18 03:08 | NUR ---
Patient in room ICU 2041. I have received report from Saul DELCID and had the opportunity to ask questions and assume patient care.
[2020-04-18 03:10] LABS: ABG BASE EXCESS 12.6 mmol/L (-2.0-2.0); ABG PCO2 (T) 43.4 mmHg (32.0-45.0); ABG PO2 (T) 68.6 mmHg (75.0-100.0); ALLEN'S TEST POSITIVE; FCOHb 0.2 % (0.0-3.9); FO2Hb 92.8 % (94-97); PEEP 5 cm H2O; RESPIRATORY RATE 13 b/min; TIDAL VOLUME 450 mL; TOTAL HEMOGLOBIN 10.3 G/dl (12.0-16.0)
[2020-04-18] MEDS: NORepinephrine 8mg/ 250ml NS 250 ML IV PRN (03:34)
[2020-04-18] MEDS: potassium Cl 20mEq/100mL bag 100 ML IV PRN ×2 (03:35→05:19)
[2020-04-18] MEDS: insulin regular, human U-100 3ml vial - multi-dose SQ SCH ×3 (03:38→14:34)
[2020-04-18 04:05] LABS: BASOPHILS # (AUTO) 0.1 X10'3 (0-0.2); BASOPHILS % (AUTO) 0.3 % (0-1); EOSINOPHILS # (AUTO) 0.1 X10'3 (0-0.9); EOSINOPHILS % (AUTO) 0.3 % (0-6); HEMATOCRIT 28.2 % (35.0-45.0); HEMOGLOBIN 9.1 g/dl (12.0-16.0); LYMPHOCYTES # (AUTO) 1.4 X10'3 (1.1-4.8); LYMPHOCYTES % (AUTO) 7.1 % (21-51); MEAN CORPUSCULAR HEMOGLOBIN 29.5 PG (27.0-31.0); MEAN CORPUSCULAR HGB CONC 32.4 g/dL (33.0-36.5); MEAN CORPUSCULAR VOLUME 90.8 FL (78-98); MEAN PLATELET VOLUME 8.7 FL (7.4-10.4); MONOCYTES # (AUTO) 2.2 X10'3 (0-0.9); MONOCYTES % (AUTO) 11.6 % (2-12); NEUTROPHILS # (AUTO) 15.5 X10'3 (1.8-7.7); NEUTROPHILS % (AUTO) 80.7 % (42-75); PLATELET COUNT 199 X10'3 (140-440); RED CELL DISTRIBUTION WIDTH 17.4 % (11.5-14.5); WHITE BLOOD COUNT 19.2 X10'3 (4.5-11.0)
[2020-04-18 04:11] LABS: PARTIAL THROMBOPLASTIN TIME 29 SECONDS (22-32)
[2020-04-18 04:13] LABS: ALANINE AMINOTRANSFERASE 34 U/L (12-78); ALBUMIN/GLOBULIN RATIO 0.6 (1.1-1.5); ALKALINE PHOSPHATASE 48 IU/L (46-116); ANION GAP 3 (8-16); ASPARTATE AMINO TRANSFERASE 28 U/L (10-37); BILIRUBIN,TOTAL 0.8 MG/DL (0.1-1.0); BLOOD UREA NITROGEN 35 MG/DL (7-18); BUN/CREATININE RATIO 45.5 (6.6-38.0); CALCIUM 8.2 MG/DL (8.5-10.1); CHLORIDE 99 MMOL/L (99-107); CREATININE 0.77 MG/DL (0.40-0.90); GLUCOSE 150 MG/DL (70-104); MAGNESIUM 1.8 MG/DL (1.5-2.4); POTASSIUM 3.2 MMOL/L (3.5-5.1); SODIUM 140 MMOL/L (135-145); TOTAL CARBON DIOXIDE 37.7 MMOL/L (24-32); TOTAL PROTEIN 5.5 G/DL (6.4-8.2); eGFR 72 ML/MIN
[2020-04-18 04:31] LABS: TOTAL CELLS COUNTED 100
[2020-04-18 04:34] LABS: ANISOCYTOSIS 1+; PLATELET ESTIMATE NORMAL; POLYCHROMASIA 1+; STOMATOCYTES 1+
--- NOTE | 2020-04-18 06:29 | NUR ---
Problems reprioritized. Patient report given, questions answered & plan of care reviewed with Chad DELCID.
--- NOTE | 2020-04-18 06:34 | NUR ---
Patient in room ICU 2041. I have received report from Lisbet DELCID and had the opportunity to ask questions and assume patient care.
[2020-04-18] MEDS: docusate sodium 100mg/10ml UD cup NG SCH ×2 (07:25→21:11)
[2020-04-18] MEDS: pantoprazole 40 MG vial IV SCH (07:38)
[2020-04-18] MEDS: mineral oil/petrolatum, white cream 113gm jar TP SCH ×2 (07:38→21:11)
[2020-04-18] MEDS: nystatin 15 GM powder TP SCH ×2 (07:38→21:12)
[2020-04-18] MEDS: K, MAG and/or Phos replacement - Verify level? MC SCH (07:40)
[2020-04-18] MEDS: MULTIVIT-MIN/FERROUS GLUCONATE 9 MG/15 ML LIQUID NG SCH (08:51)
[2020-04-18] MEDS: apixaban 2.5mg tablet NG SCH ×2 (08:51→21:12)
[2020-04-18] MEDS: lactobacillus rhamnosus 10,000 MMU CELLS/CAPSULE PO SCH ×2 (08:51→21:12)
[2020-04-18] MEDS: linagliptin 5mg tablet NG SCH (08:52)
[2020-04-18] MEDS: spironolactone 25 MG tablet PO SCH ×3 (08:52→21:00)
[2020-04-18] MEDS: metolazone 2.5mg tablet PO SCH ×2 (08:52→21:12)
[2020-04-18] MEDS: levoFLOXACIN 750MG TABLET NG SCH (11:20)
--- NOTE | 2020-04-18 15:06 | NUR ---
pt was extubated accidentally during a routine turn and skin check at 1450. Dr Da Silva was called twice and called back at this time. he is in a meeting and did not want to be disturbed. pt being placed on bipap and tolerating okay for now.
[2020-04-18] MEDS ORDERED: racepinephrine 11.25mg/0.5ml nebule IH PRN (16:10)
[2020-04-18] MEDS: dexamethasone sod phosphate 10mg/ml inj IV SCH ×2 (16:31→21:10)
[2020-04-18 17:05] LABS: ABG BASE EXCESS 14.4 mmol/L (-2.0-2.0); ABG OXYGEN SATURATION 96.2 % (94-97); ABG PCO2 (T) 49.7 mmHg (32.0-45.0); ABG PO2 (T) 87.3 mmHg (75.0-100.0); ALLEN'S TEST POSITIVE; FCOHb 0.2 % (0.0-3.9); FMetHb 0.3 % (0.0-1.5); FO2Hb 95.7 % (94-97); PATIENT TEMPERATURE 37.4; RESPIRATORY RATE 8 b/min; TIDAL VOLUME 452 mL; TOTAL HEMOGLOBIN 10.4 G/dl (12.0-16.0)
[2020-04-18 18:24] LABS: TOTAL PROTEIN,URINE RANDOM 10.8 MG/DL
--- NOTE | 2020-04-18 18:30 | NUR ---
Patient in room ICU 2041. I have received report from Chad DELCID and had the opportunity to ask questions and assume patient care.
--- NOTE | 2020-04-18 18:31 | NUR ---
Problems reprioritized. Patient report given, questions answered & plan of care reviewed with Valarie DELCID.
--- NOTE | 2020-04-18 19:35 | NUR ---
SPOKE WITH MELLY BARTLETT ABOUT HAVING THE PT REQUALIFY FOR THE HYPERGLYCEMIC PROTOCOL DUE TO TUBE FEEDING BEING STOPPED AND BEING NPO AND HE AGREED TO THAT
[2020-04-18] MEDS: sennosides/docusate sodium tablet NG SCH (21:00)
[2020-04-18] MEDS: atorvastatin 20mg tablet NG SCH (21:00)
[2020-04-18] MEDS: insulin glargine (Lantus) pen - multi-dose SQ SCH (21:00)
--- NOTE | 2020-04-18 22:23 | NUR ---
Respiratory Therapy was at code blue in ER. I was not able to give breathing treatment to patient because of that. The patient however is resting comfortably on the BiPAP at this time. Vitals are good.
--- NOTE | 2020-04-18 23:47 | NUR ---
Problems reprioritized. Patient report given, questions answered & plan of care reviewed with Jimenez RN.
[2020-04-19] VITALS (23 sets, daily range): BP systolic 116–151; BP diastolic 44–76
[2020-04-19] MEDS: BUMETANIDE 0.25 MG/ML IV SCH ×3 (00:19→16:14)
[2020-04-19] MEDS: mineral oil/petrolatum ophthal oint EACHEYE SCH ×2 (02:13→07:22)
[2020-04-19] MEDS: dexamethasone sod phosphate 10mg/ml inj IV SCH (02:13)
[2020-04-19 03:47] LABS: BASOPHILS % (AUTO) 0 % (0-1); EOSINOPHILS % (AUTO) 0 % (0-6); HEMOGLOBIN 9.3 g/dl (12.0-16.0); LYMPHOCYTES # (AUTO) 0.6 X10'3 (1.1-4.8); LYMPHOCYTES % (AUTO) 5.1 % (21-51); MEAN CORPUSCULAR HEMOGLOBIN 30.1 PG (27.0-31.0); MEAN CORPUSCULAR HGB CONC 33.1 g/dL (33.0-36.5); MEAN PLATELET VOLUME 8.7 FL (7.4-10.4); MONOCYTES # (AUTO) 0.3 X10'3 (0-0.9); MONOCYTES % (AUTO) 2.7 % (2-12); NEUTROPHILS % (AUTO) 92.2 % (42-75); PLATELET COUNT 189 X10'3 (140-440); RED BLOOD COUNT 3.08 X10'6 (4.20-5.60); RED CELL DISTRIBUTION WIDTH 17.3 % (11.5-14.5); WHITE BLOOD COUNT 11.9 X10'3 (4.5-11.0)
[2020-04-19] MEDS: ipratropium/albuterol 3ml nebule NEB SCH ×5 (03:49→23:21)
[2020-04-19 03:59] LABS: PARTIAL THROMBOPLASTIN TIME 29 SECONDS (22-32)
[2020-04-19 04:05] LABS: ALANINE AMINOTRANSFERASE 17 U/L (12-78); ALBUMIN/GLOBULIN RATIO 0.5 (1.1-1.5); ALKALINE PHOSPHATASE 50 IU/L (46-116); ANION GAP 4 (8-16); ASPARTATE AMINO TRANSFERASE 23 U/L (10-37); BILIRUBIN,TOTAL 1.1 MG/DL (0.1-1.0); BLOOD UREA NITROGEN 38 MG/DL (7-18); BUN/CREATININE RATIO 47.5 (6.6-38.0); CALCIUM 8.3 MG/DL (8.5-10.1); CHLORIDE 98 MMOL/L (99-107); GLUCOSE 159 MG/DL (70-104); PHOSPHORUS 5.1 MG/DL (2.3-4.5); POTASSIUM 3.4 MMOL/L (3.5-5.1); PREALBUMIN 12.2 MG/DL (19-36); SODIUM 140 MMOL/L (135-145); TOTAL CARBON DIOXIDE 38.4 MMOL/L (24-32); TOTAL PROTEIN 5.7 G/DL (6.4-8.2); eGFR 69 ML/MIN
[2020-04-19] MEDS: potassium Cl 20mEq/100mL bag 100 ML IV PRN ×2 (05:34→07:22)
[2020-04-19 05:49] LABS: MAGNESIUM 1.9 MG/DL (1.5-2.4)
--- NOTE | 2020-04-19 06:09 | NUR ---
Problems reprioritized. Patient report given, questions answered & plan of care reviewed with Chad DELCID. Patient resting comfortably at time of report.
--- NOTE | 2020-04-19 06:33 | NUR ---
Patient in room ICU 2041. I have received report from Jimenez DELCID and had the opportunity to ask questions and assume patient care.
[2020-04-19] MEDS: pantoprazole 40 MG vial IV SCH (07:19)
[2020-04-19] MEDS: linagliptin 5mg tablet NG SCH (08:00)
[2020-04-19] MEDS: methylnaltrexone br 12mg/0.6ml inj***SubQ only SQ SCH (08:00)
[2020-04-19] MEDS: docusate sodium 100mg/10ml UD cup NG SCH ×2 (08:00→20:31)
[2020-04-19] MEDS: metolazone 2.5mg tablet PO SCH (08:00)
[2020-04-19] MEDS: lactose-reduced food (Ensure Enlive) - 237ml bottle PO SCH ×3 (08:00→18:22)
[2020-04-19] MEDS: MULTIVIT-MIN/FERROUS GLUCONATE 9 MG/15 ML LIQUID NG SCH (08:00)
[2020-04-19] MEDS: K, MAG and/or Phos replacement - Verify level? MC SCH (08:00)
[2020-04-19] MEDS: levoFLOXACIN 750MG TABLET NG SCH (11:00)
[2020-04-19] MEDS: apixaban 2.5mg tablet NG SCH (11:29)
[2020-04-19] MEDS: lactobacillus rhamnosus 10,000 MMU CELLS/CAPSULE PO SCH ×2 (11:29→20:31)
[2020-04-19] MEDS: spironolactone 25 MG tablet PO SCH ×3 (11:29→20:31)
[2020-04-19] MEDS ORDERED: enoxaparin 40mg/0.4ml syringe SUBCUT ONE (11:35)
[2020-04-19] MEDS: mineral oil/petrolatum, white cream 113gm jar TP SCH ×2 (12:12→20:31)
[2020-04-19] MEDS: nystatin 15 GM powder TP SCH ×2 (12:12→20:31)
[2020-04-19] MEDS: levoFLOXACIN-Levaquin 750MG/D5 150 ML IV SCH (13:02)
--- NOTE | 2020-04-19 17:55 | NUR ---
rectal tube with no output today, therefore, removed at this time. pt tolerated well.
--- NOTE | 2020-04-19 18:13 | NUR ---
Problems reprioritized. Patient report given, questions answered & plan of care reviewed with Katherine DELCID.
[2020-04-19] MEDS: sennosides/docusate sodium tablet NG SCH (20:30)
[2020-04-19] MEDS: atorvastatin 20mg tablet NG SCH (20:31)
[2020-04-19] MEDS: enoxaparin 40mg/0.4ml syringe SUBCUT SCH (20:33)
[2020-04-19] MEDS: insulin glargine (Lantus) pen - multi-dose SQ SCH (21:00)
[2020-04-20] VITALS (24 sets, daily range): BP systolic 107–157; BP diastolic 39–66
[2020-04-20] MEDS: BUMETANIDE 0.25 MG/ML IV SCH ×3 (00:33→16:42)
[2020-04-20] MEDS: ipratropium/albuterol 3ml nebule NEB SCH ×6 (03:05→22:57)
[2020-04-20 03:24] LABS: BASOPHILS % (AUTO) 0.1 % (0-1); EOSINOPHILS % (AUTO) 0 % (0-6); HEMATOCRIT 27.7 % (35.0-45.0); HEMOGLOBIN 9.1 g/dl (12.0-16.0); LYMPHOCYTES # (AUTO) 1.3 X10'3 (1.1-4.8); LYMPHOCYTES % (AUTO) 8.8 % (21-51); MEAN CORPUSCULAR HGB CONC 32.9 g/dL (33.0-36.5); MEAN CORPUSCULAR VOLUME 91.1 FL (78-98); MEAN PLATELET VOLUME 8.5 FL (7.4-10.4); MONOCYTES # (AUTO) 1.4 X10'3 (0-0.9); MONOCYTES % (AUTO) 9.5 % (2-12); NEUTROPHILS # (AUTO) 12.1 X10'3 (1.8-7.7); NEUTROPHILS % (AUTO) 81.6 % (42-75); PLATELET COUNT 251 X10'3 (140-440); RED BLOOD COUNT 3.04 X10'6 (4.20-5.60); RED CELL DISTRIBUTION WIDTH 17.6 % (11.5-14.5); WHITE BLOOD COUNT 14.8 X10'3 (4.5-11.0)
[2020-04-20 03:32] LABS: PARTIAL THROMBOPLASTIN TIME 28 SECONDS (22-32)
[2020-04-20 03:33] LABS: ALANINE AMINOTRANSFERASE 21 U/L (12-78); ALBUMIN 2.2 G/DL (3.4-5.0); ALBUMIN/GLOBULIN RATIO 0.6 (1.1-1.5); ALKALINE PHOSPHATASE 50 IU/L (46-116); ANION GAP 3 (8-16); ASPARTATE AMINO TRANSFERASE 32 U/L (10-37); BLOOD UREA NITROGEN 35 MG/DL (7-18); BUN/CREATININE RATIO 43.8 (6.6-38.0); CALCIUM 8.1 MG/DL (8.5-10.1); CHLORIDE 99 MMOL/L (99-107); GLUCOSE 152 MG/DL (70-104); PHOSPHORUS 4.2 MG/DL (2.3-4.5); SODIUM 139 MMOL/L (135-145); TOTAL CARBON DIOXIDE 36.9 MMOL/L (24-32); TOTAL PROTEIN 5.6 G/DL (6.4-8.2); eGFR 68 ML/MIN
[2020-04-20 03:36] LABS: POTASSIUM 2.8 MMOL/L (3.5-5.1)
[2020-04-20] MEDS: potassium Cl 20mEq/100mL bag 100 ML IV PRN ×6 (03:43→20:53)
--- NOTE | 2020-04-20 06:15 | NUR ---
Patient in room ICU 2041. I have received report from Katherine DELCID and had the opportunity to ask questions and assume patient care.
--- NOTE | 2020-04-20 06:22 | NUR ---
Problems reprioritized. Patient report given, questions answered & plan of care reviewed with Babs DELCID.
[2020-04-20] MEDS: lactose-reduced food (Ensure Enlive) - 237ml bottle PO SCH ×2 (08:00→13:00)
--- NOTE | 2020-04-20 08:30 | NUR ---
Dr. Da Silva called and requested that the local daughter come in today at 11am to have conference regarding care for patient. I was able to call Tish and speak with her in regards but she was able to attend today at 11am. Dr. Da Silva is aware and asked for a meeting time tomorrow at 11am. Charge Nurse Candace is aware and security will be notified. Tish responded and confirmed meeting tomorrow at 11am here at [facility].
[2020-04-20] MEDS: nystatin 15 GM powder TP SCH ×2 (08:46→21:04)
[2020-04-20] MEDS: lactobacillus rhamnosus 10,000 MMU CELLS/CAPSULE PO SCH ×2 (08:46→20:49)
[2020-04-20] MEDS: mineral oil/petrolatum, white cream 113gm jar TP SCH ×2 (08:46→21:04)
[2020-04-20] MEDS: docusate sodium 100mg/10ml UD cup NG SCH ×2 (08:46→20:51)
[2020-04-20] MEDS: MULTIVIT-MIN/FERROUS GLUCONATE 9 MG/15 ML LIQUID NG SCH (08:46)
[2020-04-20] MEDS: spironolactone 25 MG tablet PO SCH ×2 (08:46→13:51)
[2020-04-20] MEDS: linagliptin 5mg tablet NG SCH (08:47)
[2020-04-20] MEDS: pantoprazole 40 MG vial IV SCH (08:47)
[2020-04-20] MEDS: enoxaparin 40mg/0.4ml syringe SUBCUT SCH ×2 (08:47→20:52)
[2020-04-20] MEDS: levoFLOXACIN-Levaquin 750MG/D5 150 ML IV SCH (08:48)
[2020-04-20] MEDS: K, MAG and/or Phos replacement - Verify level? MC SCH (08:48)
--- NOTE | 2020-04-20 09:45 | NUR ---
PA removed chest tube, patient tolerated well. Will continue to monitor.
--- NOTE | 2020-04-20 10:00 | NUR ---
Dr. Da Silva and Team at bedside with patient. Dr. Da Silva request family to come and talk about care. Patient was able to verbalize and understand the meaning of needing a corpak for feedings and discuss Code status. New Orders: Insert Corpak and initiate a diet consult to start tube feedings or Lucerin 30ml/hr, ACHS Q6, Start Acyclovir for canker sores in mouth Addendum: 04/20/20 at 1107 by Babs Madera RN Continue to use Bipap PRN if O2 <90% on 40% 5+15 Bipap. Will continue to monitor.
--- NOTE | 2020-04-20 10:30 | NUR ---
Dr. Da Silva is aware of patients pain and wants to continue not to prescribe medications that continue or potentially interfer with breathing. Will continue to monitor.
--- NOTE | 2020-04-20 11:29 | NUR ---
Shireen from Pharmacy called about the acyclovin medication MD is wanting to treatment sore in mouth. Pharmacy does not have topical, Pharmacy is converting medication to PO.
--- NOTE | 2020-04-20 12:04 | NUR ---
8 Fr, Corpak was inserted to left Nare, marked at 75. Patient tolerated well. KUB was ordered to verify placement. X ray was called to notify the need for placement. Will continue to monitor.
--- NOTE | 2020-04-20 12:15 | NUR ---
X Ray for coreiak suggested an advancement to 80. Tube advanced and X ray taken again. Will continue to monitor.
--- NOTE | 2020-04-20 14:03 | NUR ---
Reassessment: Patient extubated after intubation s/p ORIF left tibia. Was tolerating tube feeding at goal rate. On pureed diet per [employer] recs, not eating well. Per MD note pt agreed to corpak to meet nutrition needs. Recommend using Jevity 1.2 to meet needs. Pt admit w/ sepsis r/t UTI, HTN, hyperlipidemia s/p ORIF for L tibia fx from fall per MD. Rec: 1. Continuous tube feeding per corpak tube using Jevity 1.2 goal rate of 60 ml/hr. Will provide total 1440 ml volume 1728 calories, 80 g protein, 1162 ml water. 2. Patient has generalized anasarca. No longer Receiving lasix. additional water flush per MD. 3. routine bowel care 4. Prealbumin q thursday/ 5. daily wts 6. continue pureed diet with nectar thick liquids per [employer] recs Addendum: 04/20/20 at [address] Amended: Links added.
[2020-04-20] MEDS ORDERED: Neutra Phos packet NG PRN (14:18)
[2020-04-20] MEDS ORDERED: polyethylene glycol 3350 17gm powd pack NG PRN (14:19)
[2020-04-20] MEDS: lactose-reduced food (Ensure Enlive) - 237ml bottle NG SCH (18:00)
--- NOTE | 2020-04-20 18:26 | NUR ---
Problems reprioritized. Patient report given, questions answered & plan of care reviewed with Cachorro DELCID.
[2020-04-20] MEDS ORDERED: acyclovir 5% 15GM ointment TP SCH (20:00)
[2020-04-20] MEDS: atorvastatin 20mg tablet NG SCH (20:49)
[2020-04-20] MEDS: spironolactone 25 MG tablet NG SCH (20:50)
[2020-04-20] MEDS: insulin glargine (Lantus) pen - multi-dose SQ SCH (21:00)
[2020-04-20] MEDS: sennosides/docusate sodium tablet NG SCH (21:05)
[2020-04-20] MEDS: ACYCLOVIR 200 MG/5 ML NG SCH (21:15)
[2020-04-21] VITALS (23 sets, daily range): BP systolic 95–143; BP diastolic 30–55
[2020-04-21] MEDS: BUMETANIDE 0.25 MG/ML IV SCH ×3 (00:56→16:59)
[2020-04-21] MEDS: insulin regular, human U-100 3ml vial - multi-dose SQ SCH ×4 (02:31→19:50)
[2020-04-21 02:38] LABS: BASOPHILS % (AUTO) 0.1 % (0-1); EOSINOPHILS % (AUTO) 0 % (0-6); HEMATOCRIT 31.2 % (35.0-45.0); LYMPHOCYTES # (AUTO) 0.9 X10'3 (1.1-4.8); LYMPHOCYTES % (AUTO) 4.7 % (21-51); MEAN CORPUSCULAR HEMOGLOBIN 29.5 PG (27.0-31.0); MEAN CORPUSCULAR HGB CONC 32.1 g/dL (33.0-36.5); MEAN CORPUSCULAR VOLUME 91.8 FL (78-98); MEAN PLATELET VOLUME 8.6 FL (7.4-10.4); MONOCYTES # (AUTO) 1.3 X10'3 (0-0.9); MONOCYTES % (AUTO) 6.6 % (2-12); NEUTROPHILS % (AUTO) 88.6 % (42-75); PLATELET COUNT 322 X10'3 (140-440); RED CELL DISTRIBUTION WIDTH 18.6 % (11.5-14.5); WHITE BLOOD COUNT 19.2 X10'3 (4.5-11.0)
[2020-04-21 02:44] LABS: PARTIAL THROMBOPLASTIN TIME 27 SECONDS (22-32)
[2020-04-21 02:47] LABS: PHOSPHORUS 3.4 MG/DL (2.3-4.5)
[2020-04-21] MEDS: ipratropium/albuterol 3ml nebule NEB SCH ×6 (02:56→23:03)
[2020-04-21] MEDS ORDERED: HYDROcodone/acetaminophen 5mg/325mg tablet PO ONE (03:55)
[2020-04-21 04:24] LABS: ALANINE AMINOTRANSFERASE 25 U/L (12-78); ALBUMIN 2.5 G/DL (3.4-5.0); ALBUMIN/GLOBULIN RATIO 0.7 (1.1-1.5); ALKALINE PHOSPHATASE 63 IU/L (46-116); ANION GAP 10 (8-16); ASPARTATE AMINO TRANSFERASE 30 U/L (10-37); BILIRUBIN,TOTAL 1.3 MG/DL (0.1-1.0); BLOOD UREA NITROGEN 30 MG/DL (7-18); BUN/CREATININE RATIO 35.3 (6.6-38.0); CALCIUM 8.6 MG/DL (8.5-10.1); CHLORIDE 99 MMOL/L (99-107); CREATININE 0.85 MG/DL (0.40-0.90); GLUCOSE 178 MG/DL (70-104); POTASSIUM 3.5 MMOL/L (3.5-5.1); SODIUM 139 MMOL/L (135-145); TOTAL CARBON DIOXIDE 30.5 MMOL/L (24-32); eGFR 64 ML/MIN
--- NOTE | 2020-04-21 06:00 | NUR ---
Patient in room ICU 2041. I have received report from FARHANA Ivory and had the opportunity to ask questions and assume patient care.
[2020-04-21 06:52] LABS: MAGNESIUM 1.8 MG/DL (1.5-2.4)
[2020-04-21] MEDS: pantoprazole 40 MG vial IV SCH (07:51)
[2020-04-21] MEDS: MULTIVIT-MIN/FERROUS GLUCONATE 9 MG/15 ML LIQUID NG SCH (07:53)
[2020-04-21] MEDS: docusate sodium 100mg/10ml UD cup NG SCH ×2 (07:53→19:30)
[2020-04-21] MEDS: linagliptin 5mg tablet NG SCH (07:53)
[2020-04-21] MEDS: lactobacillus rhamnosus 10,000 MMU CELLS/CAPSULE PO SCH ×2 (07:54→19:30)
[2020-04-21] MEDS: enoxaparin 40mg/0.4ml syringe SUBCUT SCH ×2 (07:54→19:31)
[2020-04-21] MEDS: mineral oil/petrolatum, white cream 113gm jar TP SCH ×2 (07:55→19:32)
[2020-04-21] MEDS: nystatin 15 GM powder TP SCH ×2 (07:55→19:32)
[2020-04-21] MEDS: spironolactone 25 MG tablet NG SCH ×3 (07:57→21:24)
[2020-04-21] MEDS: K, MAG and/or Phos replacement - Verify level? MC SCH (08:00)
[2020-04-21] MEDS: lactose-reduced food (Ensure Enlive) - 237ml bottle NG SCH ×2 (08:00→12:43)
[2020-04-21] MEDS: ACYCLOVIR 200 MG/5 ML NG SCH ×3 (09:37→21:06)
[2020-04-21] MEDS ORDERED: methylphenidate 5mg tablet PO SCH (14:00)
--- NOTE | 2020-04-21 18:15 | NUR ---
Patient in room ICU 2041. I have received report from Brigette DELCID and had the opportunity to ask questions and assume patient care.
--- NOTE | 2020-04-21 18:15 | NUR ---
Problems reprioritized. Patient report given, questions answered & plan of care reviewed with FARHANA Smith.
[2020-04-21] MEDS: insulin glargine (Lantus) pen - multi-dose SQ SCH (21:06)
[2020-04-21] MEDS: diphenhydrAMINE 25 MG/10 ML UD oral solution CORPAK SCH (21:06)
[2020-04-21] MEDS: atorvastatin 20mg tablet NG SCH (21:06)
[2020-04-21] MEDS: sennosides/docusate sodium tablet NG SCH (21:06)
[2020-04-22] VITALS (24 sets, daily range): BP systolic 113–150; BP diastolic 36–68
[2020-04-22] MEDS: BUMETANIDE 0.25 MG/ML IV SCH ×3 (00:38→16:20)
[2020-04-22] MEDS: insulin regular, human U-100 3ml vial - multi-dose SQ SCH ×3 (02:19→20:15)
[2020-04-22] MEDS: ipratropium/albuterol 3ml nebule NEB SCH ×6 (02:52→23:22)
[2020-04-22 02:53] LABS: BASOPHILS % (AUTO) 0.1 % (0-1); EOSINOPHILS % (AUTO) 0.2 % (0-6); HEMOGLOBIN 9.8 g/dl (12.0-16.0); LYMPHOCYTES # (AUTO) 1.3 X10'3 (1.1-4.8); LYMPHOCYTES % (AUTO) 9.1 % (21-51); MEAN CORPUSCULAR HEMOGLOBIN 29.9 PG (27.0-31.0); MEAN CORPUSCULAR HGB CONC 32.6 g/dL (33.0-36.5); MEAN CORPUSCULAR VOLUME 91.9 FL (78-98); MEAN PLATELET VOLUME 8.4 FL (7.4-10.4); MONOCYTES # (AUTO) 0.9 X10'3 (0-0.9); MONOCYTES % (AUTO) 6.3 % (2-12); NEUTROPHILS # (AUTO) 11.7 X10'3 (1.8-7.7); NEUTROPHILS % (AUTO) 84.3 % (42-75); PLATELET COUNT 292 X10'3 (140-440); RED BLOOD COUNT 3.26 X10'6 (4.20-5.60); RED CELL DISTRIBUTION WIDTH 18.9 % (11.5-14.5); WHITE BLOOD COUNT 13.9 X10'3 (4.5-11.0)
--- NOTE | 2020-04-22 03:04 | NUR ---
Asleep. RR 24/min oxygen saturation is 97%. No distress.
[2020-04-22 03:17] LABS: ALANINE AMINOTRANSFERASE 20 U/L (12-78); ALBUMIN 2.4 G/DL (3.4-5.0); ALBUMIN/GLOBULIN RATIO 0.7 (1.1-1.5); ALKALINE PHOSPHATASE 60 IU/L (46-116); ANION GAP 7 (8-16); ASPARTATE AMINO TRANSFERASE 17 U/L (10-37); BILIRUBIN,TOTAL 1.1 MG/DL (0.1-1.0); BLOOD UREA NITROGEN 26 MG/DL (7-18); BUN/CREATININE RATIO 32.9 (6.6-38.0); CALCIUM 8.2 MG/DL (8.5-10.1); CHLORIDE 100 MMOL/L (99-107); CREATININE 0.79 MG/DL (0.40-0.90); GLUCOSE 152 MG/DL (70-104); PARTIAL THROMBOPLASTIN TIME 29 SECONDS (22-32); PHOSPHORUS 2.7 MG/DL (2.3-4.5); POTASSIUM 3.1 MMOL/L (3.5-5.1); SODIUM 138 MMOL/L (135-145); TOTAL CARBON DIOXIDE 31.1 MMOL/L (24-32); TOTAL PROTEIN 5.9 G/DL (6.4-8.2); eGFR 69 ML/MIN
[2020-04-22] MEDS: potassium Cl 20mEq/100mL bag 100 ML IV PRN ×2 (04:45→06:08)
--- NOTE | 2020-04-22 05:48 | NUR ---
Slept for short interval. Awake throughout the night. Confused thinking she is at her house. Reoriented without success. RR 16-20/min with oxygen saturation 100% on 2L O2. Tolerating enteric feedings without residuals. Rhythm is V paced HR 60/min. K+ replacement in progress for K+ 3.1. via beltrán port right IJ quad lumen central line.
[2020-04-22] MEDS: methylphenidate 5mg tablet CORPAK SCH ×3 (06:13→13:28)
[2020-04-22] MEDS: K, MAG and/or Phos replacement - Verify level? MC SCH (08:00)
[2020-04-22] MEDS: docusate sodium 100mg/10ml UD cup NG SCH ×2 (08:06→20:11)
[2020-04-22] MEDS: pantoprazole 40 MG vial IV SCH (08:06)
[2020-04-22] MEDS: lactobacillus rhamnosus 10,000 MMU CELLS/CAPSULE PO SCH ×2 (08:06→20:11)
[2020-04-22] MEDS: nystatin 15 GM powder TP SCH ×2 (08:06→20:12)
[2020-04-22] MEDS: spironolactone 25 MG tablet NG SCH ×3 (08:07→20:58)
[2020-04-22] MEDS: ACYCLOVIR 200 MG/5 ML NG SCH ×3 (08:08→20:58)
[2020-04-22] MEDS: levoFLOXACIN-Levaquin 750MG/D5 150 ML IV SCH (08:10)
[2020-04-22] MEDS: enoxaparin 40mg/0.4ml syringe SUBCUT SCH ×2 (08:11→20:12)
[2020-04-22] MEDS: mineral oil/petrolatum, white cream 113gm jar TP SCH ×2 (08:12→20:12)
[2020-04-22] MEDS: linagliptin 5mg tablet NG SCH (08:33)
[2020-04-22] MEDS: MULTIVIT-MIN/FERROUS GLUCONATE 9 MG/15 ML LIQUID NG SCH (11:20)
[2020-04-22] MEDS: cyclobenzaprine 10mg tablet NG PRN ×2 (11:20→22:58)
[2020-04-22] MEDS ORDERED: acetaminophen 325mg tablet PO PRN (14:35)
[2020-04-22] MEDS: atorvastatin 20mg tablet NG SCH (20:57)
[2020-04-22] MEDS: sennosides/docusate sodium tablet NG SCH (20:57)
[2020-04-22] MEDS: diphenhydrAMINE 25 MG/10 ML UD oral solution CORPAK SCH (20:58)
[2020-04-22] MEDS: insulin glargine (Lantus) pen - multi-dose SQ SCH (21:07)
[2020-04-22] MEDS: acetaminophen 325mg/10.15ml oral unit dose solution NG PRN (22:58)
[2020-04-23] VITALS (24 sets, daily range): BP systolic 102–152; BP diastolic 47–71
[2020-04-23] MEDS: BUMETANIDE 0.25 MG/ML IV SCH ×3 (00:37→18:06)
[2020-04-23] MEDS: insulin regular, human U-100 3ml vial - multi-dose SQ SCH ×3 (02:12→21:09)
[2020-04-23 03:07] LABS: PARTIAL THROMBOPLASTIN TIME 28 SECONDS (22-32)
[2020-04-23 03:13] LABS: PHOSPHORUS 2.8 MG/DL (2.3-4.5); PREALBUMIN 16.6 MG/DL (19-36)
[2020-04-23 03:20] LABS: MAGNESIUM 1.8 MG/DL (1.5-2.4)
[2020-04-23] MEDS: ipratropium/albuterol 3ml nebule NEB SCH ×6 (03:26→23:44)
[2020-04-23 04:57] LABS: ALBUMIN 2.4 G/DL (3.4-5.0); ANION GAP 9 (8-16); BLOOD UREA NITROGEN 24 MG/DL (7-18); BUN/CREATININE RATIO 32.4 (6.6-38.0); CALCIUM 8.2 MG/DL (8.5-10.1); CHLORIDE 99 MMOL/L (99-107); CREATININE 0.74 MG/DL (0.40-0.90); GLUCOSE 145 MG/DL (70-104); POTASSIUM 3.3 MMOL/L (3.5-5.1); SODIUM 138 MMOL/L (135-145); TOTAL CARBON DIOXIDE 29.9 MMOL/L (24-32); eGFR 75 ML/MIN
[2020-04-23] MEDS: POTASSIUM BICARB 20meq eff tab 20 MEQ TABLET.EFF NG PRN ×3 (05:24→18:09)
[2020-04-23] MEDS: methylphenidate 5mg tablet CORPAK SCH (05:30)
--- NOTE | 2020-04-23 06:15 | NUR ---
Problems reprioritized. Patient report given, questions answered & plan of care reviewed with Ana DELCID.
[2020-04-23] MEDS: docusate sodium 100mg/10ml UD cup NG SCH ×2 (07:44→22:21)
[2020-04-23] MEDS: pantoprazole 40 MG vial IV SCH (07:44)
[2020-04-23] MEDS: linagliptin 5mg tablet NG SCH (07:44)
[2020-04-23] MEDS: spironolactone 25 MG tablet NG SCH ×3 (07:45→21:01)
[2020-04-23] MEDS: MULTIVIT-MIN/FERROUS GLUCONATE 9 MG/15 ML LIQUID NG SCH (07:45)
[2020-04-23] MEDS: enoxaparin 40mg/0.4ml syringe SUBCUT SCH ×2 (07:46→21:03)
[2020-04-23] MEDS: ACYCLOVIR 200 MG/5 ML NG SCH ×3 (07:47→21:00)
[2020-04-23] MEDS: lactobacillus rhamnosus 10,000 MMU CELLS/CAPSULE PO SCH ×2 (07:47→21:02)
[2020-04-23] MEDS: nystatin 15 GM powder TP SCH ×2 (07:48→21:03)
[2020-04-23] MEDS: mineral oil/petrolatum, white cream 113gm jar TP SCH ×2 (07:48→21:04)
[2020-04-23] MEDS: K, MAG and/or Phos replacement - Verify level? MC SCH (08:00)
[2020-04-23] MEDS: methylphenidate 5mg tablet NG SCH ×2 (10:23→14:10)
--- NOTE | 2020-04-23 18:19 | NUR ---
Patient in room ICU 2041. I have received report from Ana DELCID and had the opportunity to ask questions and assume patient care.
[2020-04-23] MEDS: sennosides/docusate sodium tablet NG SCH (21:02)
[2020-04-23] MEDS: atorvastatin 20mg tablet NG SCH (21:02)
[2020-04-23] MEDS: diphenhydrAMINE 25 MG/10 ML UD oral solution NG SCH (21:03)
[2020-04-23] MEDS: insulin glargine (Lantus) pen - multi-dose SQ SCH (21:07)
[2020-04-23] MEDS: cyclobenzaprine 10mg tablet NG PRN (22:26)
[2020-04-24] VITALS (18 sets, daily range): BP systolic 99–166; BP diastolic 40–88
[2020-04-24] MEDS: insulin regular, human U-100 3ml vial - multi-dose SQ SCH ×4 (02:04→21:34)
[2020-04-24] MEDS: BUMETANIDE 0.25 MG/ML IV SCH ×3 (02:33→16:28)
[2020-04-24 02:46] LABS: BASOPHILS % (AUTO) 0.2 % (0-1); EOSINOPHILS # (AUTO) 0.2 X10'3 (0-0.9); EOSINOPHILS % (AUTO) 1.3 % (0-6); HEMATOCRIT 32.2 % (35.0-45.0); HEMOGLOBIN 10.5 g/dl (12.0-16.0); LYMPHOCYTES # (AUTO) 1.4 X10'3 (1.1-4.8); LYMPHOCYTES % (AUTO) 11.3 % (21-51); MEAN CORPUSCULAR HEMOGLOBIN 29.7 PG (27.0-31.0); MEAN CORPUSCULAR HGB CONC 32.4 g/dL (33.0-36.5); MEAN CORPUSCULAR VOLUME 91.6 FL (78-98); MEAN PLATELET VOLUME 8.2 FL (7.4-10.4); MONOCYTES # (AUTO) 1.3 X10'3 (0-0.9); MONOCYTES % (AUTO) 10.2 % (2-12); NEUTROPHILS # (AUTO) 9.6 X10'3 (1.8-7.7); PLATELET COUNT 342 X10'3 (140-440); RED BLOOD COUNT 3.52 X10'6 (4.20-5.60); RED CELL DISTRIBUTION WIDTH 19.2 % (11.5-14.5); WHITE BLOOD COUNT 12.5 X10'3 (4.5-11.0)
[2020-04-24] MEDS: ipratropium/albuterol 3ml nebule NEB SCH ×6 (02:55→23:04)
[2020-04-24 03:00] LABS: PARTIAL THROMBOPLASTIN TIME 28 SECONDS (22-32)
[2020-04-24 03:07] LABS: ALBUMIN 2.6 G/DL (3.4-5.0); ANION GAP 8 (8-16); BLOOD UREA NITROGEN 21 MG/DL (7-18); CALCIUM 8.5 MG/DL (8.5-10.1); CHLORIDE 100 MMOL/L (99-107); GLUCOSE 136 MG/DL (70-104); MAGNESIUM 1.8 MG/DL (1.5-2.4); PHOSPHORUS 2.7 MG/DL (2.3-4.5); POTASSIUM 3.4 MMOL/L (3.5-5.1); SODIUM 137 MMOL/L (135-145); eGFR 80 ML/MIN
[2020-04-24] MEDS: POTASSIUM BICARB 20meq eff tab 20 MEQ TABLET.EFF NG PRN ×3 (05:19→12:41)
[2020-04-24] MEDS: methylphenidate 5mg tablet NG SCH ×3 (05:29→13:50)
--- NOTE | 2020-04-24 06:15 | NUR ---
Problems reprioritized. Patient report given, questions answered & plan of care reviewed with Brigette DELCID.
[2020-04-24] MEDS: K, MAG and/or Phos replacement - Verify level? MC SCH (08:00)
[2020-04-24] MEDS: levoFLOXACIN-Levaquin 750MG/D5 150 ML IV SCH (08:14)
[2020-04-24] MEDS: pantoprazole 40 MG vial IV SCH (08:14)
[2020-04-24] MEDS: docusate sodium 100mg/10ml UD cup NG SCH ×2 (08:15→21:25)
[2020-04-24] MEDS: linagliptin 5mg tablet NG SCH (08:15)
[2020-04-24] MEDS: MULTIVIT-MIN/FERROUS GLUCONATE 9 MG/15 ML LIQUID NG SCH (08:15)
[2020-04-24] MEDS: spironolactone 25 MG tablet NG SCH ×3 (08:16→21:18)
[2020-04-24] MEDS: lactobacillus rhamnosus 10,000 MMU CELLS/CAPSULE PO SCH ×2 (08:16→20:00)
[2020-04-24] MEDS: enoxaparin 40mg/0.4ml syringe SUBCUT SCH ×2 (08:17→21:29)
[2020-04-24] MEDS: ACYCLOVIR 200 MG/5 ML NG SCH ×3 (08:21→21:27)
[2020-04-24] MEDS: nystatin 15 GM powder TP SCH ×2 (08:22→21:30)
[2020-04-24] MEDS: mineral oil/petrolatum, white cream 113gm jar TP SCH ×2 (08:22→21:29)
--- NOTE | 2020-04-24 13:00 | NUR ---
called pt report to Kevon DECLID; all questions answered.
--- NOTE | 2020-04-24 14:40 | NUR ---
Report called to receiving nurseKevon. Transferred via hospital bed with all belongings and patient specific medications. Special Issues communicated to receiving nurse.
--- NOTE | 2020-04-24 15:22 | NUR ---
Reassessment: Tolerating tube feeding at goal rate with corpak, TF at 60 ml/hr. No longer on pureed diet. Pt admit with sepsis r/t UTI, HTN, hyperlipidemia s/p ORIF for L tibia fx from fall per MD. Per [facility] note pt has pressure ulcer to sacrum staged SDTI/DTI, is edematous, partial thickness. Receiving enough protein to meet needs with TF. Rec: 1. Continuous tube feeding per corpak tube using Jevity 1.2 goal rate of 60 ml/hr. Will provide total 1440 ml volume 1728 calories, 80 g protein, 1162 ml water. 2. Patient has generalized anasarca. No longer Receiving lasix. additional water flush per MD. 3. routine bowel care 4. Prealbumin q thursday/ 5. daily wts Addendum: 04/24/20 at [address] Amended: Links added.
--- NOTE | 2020-04-24 15:42 | NUR ---
Agree with prior RN day assessment
--- NOTE | 2020-04-24 18:14 | NUR ---
Problems reprioritized. Patient report given, questions answered & plan of care reviewed with Jonah RN.
--- NOTE | 2020-04-24 18:30 | NUR ---
Patient in room PCU 3027. I have received report from Kevon DELCID and had the opportunity to ask questions and assume patient care.
[2020-04-24] MEDS: sennosides/docusate sodium tablet NG SCH (21:18)
[2020-04-24] MEDS: atorvastatin 20mg tablet NG SCH (21:19)
[2020-04-24] MEDS: diphenhydrAMINE 25 MG/10 ML UD oral solution NG SCH (21:25)
[2020-04-24] MEDS: insulin glargine (Lantus) pen - multi-dose SQ SCH (21:33)
[2020-04-25 02:00] VITALS: BP 129/57
[2020-04-25] MEDS: insulin regular, human U-100 3ml vial - multi-dose SQ SCH ×4 (02:46→20:50)
[2020-04-25] MEDS: ipratropium/albuterol 3ml nebule NEB SCH ×6 (03:00→23:31)
[2020-04-25] MEDS: BUMETANIDE 0.25 MG/ML IV SCH ×3 (03:27→19:00)
[2020-04-25 06:00] VITALS: BP 151/51
--- NOTE | 2020-04-25 06:10 | NUR ---
Patient in room PCU 3027. I have received report from FARHANA Mckenzie and had the opportunity to ask questions and assume patient care.
--- NOTE | 2020-04-25 06:13 | NUR ---
Problems reprioritized. Patient report given, questions answered & plan of care reviewed with Kimberly DELCID.
[2020-04-25] MEDS: linagliptin 5mg tablet NG SCH (07:31)
[2020-04-25] MEDS: MULTIVIT-MIN/FERROUS GLUCONATE 9 MG/15 ML LIQUID NG SCH (07:31)
[2020-04-25] MEDS: docusate sodium 100mg/10ml UD cup NG SCH ×2 (07:31→20:00)
[2020-04-25] MEDS: lactobacillus rhamnosus 10,000 MMU CELLS/CAPSULE PO SCH ×2 (07:31→20:57)
[2020-04-25] MEDS: enoxaparin 40mg/0.4ml syringe SUBCUT SCH ×2 (07:31→20:58)
[2020-04-25] MEDS: pantoprazole 40 MG vial IV SCH (07:31)
[2020-04-25] MEDS: nystatin 15 GM powder TP SCH ×2 (07:32→20:59)
[2020-04-25] MEDS: ACYCLOVIR 200 MG/5 ML NG SCH ×3 (07:32→23:02)
[2020-04-25] MEDS: spironolactone 25 MG tablet NG SCH ×3 (07:32→20:56)
[2020-04-25] MEDS: K, MAG and/or Phos replacement - Verify level? MC SCH (08:00)
[2020-04-25] MEDS: methylphenidate 5mg tablet NG SCH ×3 (08:11→14:21)
[2020-04-25 11:00] VITALS: BP 147/57
[2020-04-25] MEDS: mineral oil/petrolatum, white cream 113gm jar TP SCH ×2 (12:44→22:30)
--- NOTE | 2020-04-25 13:06 | NUR ---
Patient in room PCU 3027. I have received report from Kimberly DELCID and had the opportunity to ask questions and assume patient care.
--- NOTE | 2020-04-25 13:12 | NUR ---
Problems reprioritized. Patient report given, questions answered & plan of care reviewed with Babs Mar RN.
--- NOTE | 2020-04-25 13:26 | NUR ---
Received patient report from Brent DLECID. Patient is in bed with corepack thru left nostril running Jevity 1.2 running 60ml/hr. Patient is currently NPO with tube feeding only. Potassium as of 04-24 was 3.4 and a redraw was never performed. Held spirolactone and buspirone due to no lab drawls. Labs order from Dr. García awaiting results. Patient appears left sided droop but nothing different from baseline. Patient continues to complain of pain and dry mouth. Will continue to monitor.
[2020-04-25 13:56] LABS: BASOPHILS % (AUTO) 0.1 % (0-1); EOSINOPHILS # (AUTO) 0.2 X10'3 (0-0.9); EOSINOPHILS % (AUTO) 1.5 % (0-6); HEMATOCRIT 32.7 % (35.0-45.0); HEMOGLOBIN 10.7 g/dl (12.0-16.0); LYMPHOCYTES # (AUTO) 1.6 X10'3 (1.1-4.8); LYMPHOCYTES % (AUTO) 14.7 % (21-51); MEAN CORPUSCULAR HEMOGLOBIN 29.9 PG (27.0-31.0); MEAN CORPUSCULAR HGB CONC 32.8 g/dL (33.0-36.5); MEAN CORPUSCULAR VOLUME 91.2 FL (78-98); MONOCYTES # (AUTO) 1.5 X10'3 (0-0.9); MONOCYTES % (AUTO) 13.8 % (2-12); NEUTROPHILS # (AUTO) 7.4 X10'3 (1.8-7.7); NEUTROPHILS % (AUTO) 69.9 % (42-75); PLATELET COUNT 379 X10'3 (140-440); RED BLOOD COUNT 3.58 X10'6 (4.20-5.60); RED CELL DISTRIBUTION WIDTH 19.2 % (11.5-14.5); WHITE BLOOD COUNT 10.6 X10'3 (4.5-11.0)
[2020-04-25 14:21] LABS: ALANINE AMINOTRANSFERASE 16 U/L (12-78); ALBUMIN 2.6 G/DL (3.4-5.0); ALBUMIN/GLOBULIN RATIO 0.7 (1.1-1.5); ALKALINE PHOSPHATASE 74 IU/L (46-116); ANION GAP 7 (8-16); ASPARTATE AMINO TRANSFERASE 16 U/L (10-37); BILIRUBIN,TOTAL 0.9 MG/DL (0.1-1.0); BLOOD UREA NITROGEN 25 MG/DL (7-18); BUN/CREATININE RATIO 36.2 (6.6-38.0); CALCIUM 8.4 MG/DL (8.5-10.1); CHLORIDE 100 MMOL/L (99-107); CREATININE 0.69 MG/DL (0.40-0.90); GLUCOSE 147 MG/DL (70-104); SODIUM 137 MMOL/L (135-145); TOTAL CARBON DIOXIDE 29.8 MMOL/L (24-32); TOTAL PROTEIN 6.5 G/DL (6.4-8.2); eGFR 81 ML/MIN
[2020-04-25 15:00] VITALS: BP 140/38
[2020-04-25 15:11] LABS: ANISOCYTOSIS 2+; PLATELET ESTIMATE NORMAL
--- NOTE | 2020-04-25 16:55 | NUR ---
Patients labs are back and medication Bumetanide and spironolactone were give. BP/HR in range and electrolytes in range as well. will continue to monitor.
--- NOTE | 2020-04-25 17:26 | NUR ---
Paged Dr. García Re:Geno Samuel RM [id number]. Pt on tube feed with no flush. Pt urine is dark and no Fluids are going. Please Advise and Thank you Babs DELCID [id number]
[2020-04-25 18:00] VITALS: BP 126/56
--- NOTE | 2020-04-25 18:01 | NUR ---
Problems reprioritized. Patient report given, questions answered & plan of care reviewed with Marily DELCID.
--- NOTE | 2020-04-25 18:05 | NUR ---
Patient in room PCU 3027. I have received report from FARHANA Brice and had the opportunity to ask questions and assume patient care.
[2020-04-25] MEDS: sennosides/docusate sodium tablet NG SCH (20:52)
[2020-04-25] MEDS: diphenhydrAMINE 25 MG/10 ML UD oral solution NG SCH (20:52)
[2020-04-25] MEDS: atorvastatin 20mg tablet NG SCH (20:53)
[2020-04-25] MEDS: insulin glargine (Lantus) pen - multi-dose SQ SCH (21:00)
[2020-04-25 22:00] VITALS: BP 143/80
[2020-04-25] MEDS: acetaminophen 325mg tablet NG PRN (22:29)
--- NOTE | 2020-04-26 02:00 | NUR ---
0200 vital signs and turns skipped per MD order for patient's sleep cycle. See in misc note.
[2020-04-26] MEDS: BUMETANIDE 0.25 MG/ML IV SCH (02:26)
[2020-04-26] MEDS: insulin regular, human U-100 3ml vial - multi-dose SQ SCH ×2 (02:39→09:33)
[2020-04-26] MEDS: ipratropium/albuterol 3ml nebule NEB SCH ×6 (03:32→23:44)
[2020-04-26 05:09] LABS: BASOPHILS % (AUTO) 0.4 % (0-1); EOSINOPHILS # (AUTO) 0.2 X10'3 (0-0.9); EOSINOPHILS % (AUTO) 1.4 % (0-6); HEMATOCRIT 35.1 % (35.0-45.0); HEMOGLOBIN 11.5 g/dl (12.0-16.0); LYMPHOCYTES # (AUTO) 1.9 X10'3 (1.1-4.8); LYMPHOCYTES % (AUTO) 18.1 % (21-51); MEAN CORPUSCULAR HGB CONC 32.7 g/dL (33.0-36.5); MEAN CORPUSCULAR VOLUME 91.5 FL (78-98); MEAN PLATELET VOLUME 8.2 FL (7.4-10.4); MONOCYTES # (AUTO) 1.5 X10'3 (0-0.9); MONOCYTES % (AUTO) 14.2 % (2-12); NEUTROPHILS % (AUTO) 65.9 % (42-75); PLATELET COUNT 380 X10'3 (140-440); RED BLOOD COUNT 3.83 X10'6 (4.20-5.60); RED CELL DISTRIBUTION WIDTH 18.7 % (11.5-14.5); WHITE BLOOD COUNT 10.6 X10'3 (4.5-11.0)
[2020-04-26 05:26] LABS: ALANINE AMINOTRANSFERASE 15 U/L (12-78); ALBUMIN 2.8 G/DL (3.4-5.0); ALBUMIN/GLOBULIN RATIO 0.7 (1.1-1.5); ALKALINE PHOSPHATASE 79 IU/L (46-116); ANION GAP 9 (8-16); ASPARTATE AMINO TRANSFERASE 16 U/L (10-37); BILIRUBIN,TOTAL 0.8 MG/DL (0.1-1.0); BLOOD UREA NITROGEN 27 MG/DL (7-18); CALCIUM 8.6 MG/DL (8.5-10.1); CHLORIDE 98 MMOL/L (99-107); CREATININE 0.71 MG/DL (0.40-0.90); GLUCOSE 141 MG/DL (70-104); POTASSIUM 3.9 MMOL/L (3.5-5.1); PREALBUMIN 20.9 MG/DL (19-36); SODIUM 136 MMOL/L (135-145); TOTAL CARBON DIOXIDE 29.2 MMOL/L (24-32); TOTAL PROTEIN 6.9 G/DL (6.4-8.2); eGFR 78 ML/MIN
[2020-04-26] MEDS: methylphenidate 5mg tablet NG SCH (05:42)
[2020-04-26 06:00] VITALS: BP 154/36
--- NOTE | 2020-04-26 06:25 | NUR ---
Patient in room PCU 3027. I have received report from FARHANA Calixto and had the opportunity to ask questions and assume patient care.
--- NOTE | 2020-04-26 06:25 | NUR ---
Problems reprioritized. Patient report given, questions answered & plan of care reviewed with FARHANA Moses.
[2020-04-26 06:43] LABS: ANISOCYTOSIS 2+; PLATELET ESTIMATE NORMAL
[2020-04-26 06:44] LABS: POLYCHROMASIA FEW; SCHISTOCYTES FEW
[2020-04-26] MEDS: K, MAG and/or Phos replacement - Verify level? MC SCH (08:00)
[2020-04-26] MEDS: ACYCLOVIR 200 MG/5 ML NG SCH ×3 (08:00→20:49)
[2020-04-26] MEDS: mineral oil/petrolatum, white cream 113gm jar TP SCH ×2 (08:00→19:30)
[2020-04-26] MEDS: MULTIVIT-MIN/FERROUS GLUCONATE 9 MG/15 ML LIQUID NG SCH (09:09)
[2020-04-26] MEDS: docusate sodium 100mg/10ml UD cup NG SCH ×2 (09:09→19:53)
[2020-04-26] MEDS: lactobacillus rhamnosus 10,000 MMU CELLS/CAPSULE PO SCH ×2 (09:10→19:49)
[2020-04-26] MEDS: enoxaparin 40mg/0.4ml syringe SUBCUT SCH ×2 (09:10→19:49)
[2020-04-26] MEDS: pantoprazole 40 MG vial IV SCH (09:10)
[2020-04-26] MEDS: nystatin 15 GM powder TP SCH ×2 (09:35→20:50)
[2020-04-26 11:00] VITALS: BP 119/40
[2020-04-26 15:00] VITALS: BP 134/53
--- NOTE | 2020-04-26 16:20 | NUR ---
Discussed removing Corepack with Dr. Martinez during rounding. Dr. Martinez wanted the corepack removed from patient today. Patient ate approximatley 50% of her lunch and ate multiple yogurts from kitchen. Reviewed MD order. Corepack tip remained intact. Patient tolerated well.
[2020-04-26 18:00] VITALS: BP 130/45
--- NOTE | 2020-04-26 18:12 | NUR ---
Problems reprioritized. Patient report given, questions answered & plan of care reviewed with FARHANA Norman.
[2020-04-26] MEDS: atorvastatin 20mg tablet NG SCH (20:49)
[2020-04-26] MEDS: sennosides/docusate sodium tablet NG SCH (20:49)
[2020-04-26] MEDS: diphenhydrAMINE 25 MG/10 ML UD oral solution NG SCH (20:50)
[2020-04-26] MEDS: insulin glargine (Lantus) pen - multi-dose SQ SCH (21:00)
[2020-04-26 22:00] VITALS: BP 139/46
[2020-04-27 02:00] VITALS: BP 151/55
[2020-04-27] MEDS: ipratropium/albuterol 3ml nebule NEB SCH ×6 (03:14→23:53)
[2020-04-27 05:14] LABS: BASOPHILS # (AUTO) 0.1 X10'3 (0-0.2); BASOPHILS % (AUTO) 0.6 % (0-1); EOSINOPHILS # (AUTO) 0.2 X10'3 (0-0.9); HEMATOCRIT 33.8 % (35.0-45.0); HEMOGLOBIN 11.2 g/dl (12.0-16.0); LYMPHOCYTES # (AUTO) 1.7 X10'3 (1.1-4.8); LYMPHOCYTES % (AUTO) 17.6 % (21-51); MEAN CORPUSCULAR HEMOGLOBIN 30.6 PG (27.0-31.0); MEAN CORPUSCULAR HGB CONC 33.1 g/dL (33.0-36.5); MEAN CORPUSCULAR VOLUME 92.4 FL (78-98); MEAN PLATELET VOLUME 8.2 FL (7.4-10.4); MONOCYTES # (AUTO) 1.4 X10'3 (0-0.9); MONOCYTES % (AUTO) 14.3 % (2-12); NEUTROPHILS # (AUTO) 6.4 X10'3 (1.8-7.7); NEUTROPHILS % (AUTO) 65.5 % (42-75); PLATELET COUNT 400 X10'3 (140-440); RED BLOOD COUNT 3.66 X10'6 (4.20-5.60); RED CELL DISTRIBUTION WIDTH 19.8 % (11.5-14.5); WHITE BLOOD COUNT 9.8 X10'3 (4.5-11.0)
[2020-04-27 05:22] LABS: ALANINE AMINOTRANSFERASE 14 U/L (12-78); ALBUMIN 2.7 G/DL (3.4-5.0); ALBUMIN/GLOBULIN RATIO 0.7 (1.1-1.5); ALKALINE PHOSPHATASE 76 IU/L (46-116); ANION GAP 7 (8-16); ASPARTATE AMINO TRANSFERASE 15 U/L (10-37); BILIRUBIN,TOTAL 0.7 MG/DL (0.1-1.0); BLOOD UREA NITROGEN 25 MG/DL (7-18); BUN/CREATININE RATIO 34.2 (6.6-38.0); CALCIUM 8.6 MG/DL (8.5-10.1); CHLORIDE 99 MMOL/L (99-107); CREATININE 0.73 MG/DL (0.40-0.90); GLUCOSE 119 MG/DL (70-104); POTASSIUM 3.9 MMOL/L (3.5-5.1); SODIUM 135 MMOL/L (135-145); TOTAL CARBON DIOXIDE 29.5 MMOL/L (24-32); TOTAL PROTEIN 6.5 G/DL (6.4-8.2); eGFR 76 ML/MIN
[2020-04-27] MEDS: acetaminophen 325mg tablet NG PRN (05:34)
[2020-04-27 06:00] VITALS: BP 154/50
--- NOTE | 2020-04-27 06:33 | NUR ---
Problems reprioritized. Patient report given, questions answered & plan of care reviewed with Darby DELCID.
[2020-04-27] MEDS: mineral oil/petrolatum, white cream 113gm jar TP SCH ×2 (08:00→20:28)
[2020-04-27] MEDS: nystatin 15 GM powder TP SCH ×2 (08:00→20:28)
[2020-04-27] MEDS: K, MAG and/or Phos replacement - Verify level? MC SCH (08:32)
[2020-04-27] MEDS: MULTIVIT-MIN/FERROUS GLUCONATE 9 MG/15 ML LIQUID NG SCH (08:32)
[2020-04-27] MEDS: docusate sodium 100mg/10ml UD cup NG SCH (08:33)
[2020-04-27] MEDS: enoxaparin 40mg/0.4ml syringe SUBCUT SCH ×2 (08:33→20:28)
[2020-04-27] MEDS: lactobacillus rhamnosus 10,000 MMU CELLS/CAPSULE PO SCH ×2 (08:33→20:26)
[2020-04-27] MEDS: ACYCLOVIR 200 MG/5 ML NG SCH (08:33)
[2020-04-27] MEDS: pantoprazole 40 MG vial IV SCH (08:34)
[2020-04-27 11:00] VITALS: BP 153/50
--- NOTE | 2020-04-27 14:00 | NUR ---
PAGER ID: [phone] MESSAGE: [phone]: Debbie Dye - Pt has no rx for pain besides Tylenol, would you like for pt to receive something else when working with PT? -Darby [phone]
[2020-04-27] MEDS ORDERED: ACYCLOVIR 200 MG/5 ML NG ONE (14:10)
[2020-04-27 15:00] VITALS: BP 147/50
[2020-04-27] MEDS ORDERED: acetaminophen 325mg tablet PO PRN (16:01)
--- NOTE | 2020-04-27 16:01 | NUR ---
Reassessment: Corpak removed yesterday per MD order after patient ate about 50% of her lunch and yogurts per nursing note. patient is on a pureed diet and nectar thick liquids per [employer] recommendations. Patient had corpak originally d/t poor PO intake not meeting nutrition needs. Had small BMs 04/22, 04/23, with a BM on 04/26 per I/O. Is receiving routine colace. Nutrition intake intervention was missing, added today at 16:00. Rec: 1. Continue pureed diet, nectar thick liquids per [employer] recs 2. routine bowel care 3. weight per rx Addendum: 04/27/20 at [address] Amended: Links added.
[2020-04-27] MEDS ORDERED: acetaminophen 325mg/10.15ml oral unit dose solution PO PRN ×2 (16:02)
[2020-04-27] MEDS ORDERED: magnesium hydroxide 30ml (MOM) UD suspension PO PRN (16:03)
[2020-04-27] MEDS ORDERED: polyethylene glycol 3350 17gm powd pack PO PRN (16:03)
[2020-04-27] MEDS ORDERED: sennosides 8.6mg tablet PO PRN (16:03)
[2020-04-27 18:00] VITALS: BP 147/57
--- NOTE | 2020-04-27 18:00 | NUR ---
Patient in room PCU 3027. I have received report from Darby DELCID and had the opportunity to ask questions and assume patient care.
--- NOTE | 2020-04-27 18:17 | NUR ---
Problems reprioritized. Patient report given, questions answered & plan of care reviewed with FARHANA Shaw.
[2020-04-27] MEDS: diphenhydrAMINE 25 MG/10 ML UD oral solution PO SCH (20:26)
[2020-04-27] MEDS: atorvastatin 20mg tablet PO SCH (20:26)
[2020-04-27] MEDS: docusate sodium 100mg/10ml UD cup PO SCH (20:26)
[2020-04-27] MEDS: metoprolol tartrate 50mg tablet PO SCH (20:27)
[2020-04-27] MEDS: sennosides/docusate sodium tablet PO SCH (20:27)
[2020-04-27 22:00] VITALS: BP 151/64
[2020-04-28 02:00] VITALS: BP 151/55
[2020-04-28] MEDS: ipratropium/albuterol 3ml nebule NEB SCH ×5 (03:16→19:37)
[2020-04-28 05:54] LABS: BASOPHILS % (AUTO) 0.5 % (0-1); EOSINOPHILS # (AUTO) 0.2 X10'3 (0-0.9); EOSINOPHILS % (AUTO) 2.1 % (0-6); HEMATOCRIT 33.6 % (35.0-45.0); HEMOGLOBIN 11.1 g/dl (12.0-16.0); LYMPHOCYTES # (AUTO) 1.6 X10'3 (1.1-4.8); LYMPHOCYTES % (AUTO) 21.2 % (21-51); MEAN CORPUSCULAR HEMOGLOBIN 30.4 PG (27.0-31.0); MEAN CORPUSCULAR HGB CONC 33.1 g/dL (33.0-36.5); MEAN CORPUSCULAR VOLUME 91.9 FL (78-98); MEAN PLATELET VOLUME 8.1 FL (7.4-10.4); MONOCYTES # (AUTO) 1.3 X10'3 (0-0.9); MONOCYTES % (AUTO) 16.4 % (2-12); NEUTROPHILS # (AUTO) 4.6 X10'3 (1.8-7.7); NEUTROPHILS % (AUTO) 59.8 % (42-75); PLATELET COUNT 410 X10'3 (140-440); RED BLOOD COUNT 3.65 X10'6 (4.20-5.60); RED CELL DISTRIBUTION WIDTH 19.3 % (11.5-14.5); WHITE BLOOD COUNT 7.8 X10'3 (4.5-11.0)
[2020-04-28 06:00] VITALS: BP 124/38
[2020-04-28 06:15] LABS: ALANINE AMINOTRANSFERASE 12 U/L (12-78); ALBUMIN 2.5 G/DL (3.4-5.0); ALBUMIN/GLOBULIN RATIO 0.6 (1.1-1.5); ALKALINE PHOSPHATASE 84 IU/L (46-116); ANION GAP 7 (8-16); ASPARTATE AMINO TRANSFERASE 17 U/L (10-37); BILIRUBIN,TOTAL 0.7 MG/DL (0.1-1.0); BLOOD UREA NITROGEN 19 MG/DL (7-18); BUN/CREATININE RATIO 27.9 (6.6-38.0); CALCIUM 8.1 MG/DL (8.5-10.1); CHLORIDE 100 MMOL/L (99-107); CREATININE 0.68 MG/DL (0.40-0.90); GLUCOSE 126 MG/DL (70-104); POTASSIUM 3.5 MMOL/L (3.5-5.1); SODIUM 136 MMOL/L (135-145); TOTAL CARBON DIOXIDE 28.9 MMOL/L (24-32); TOTAL PROTEIN 6.9 G/DL (6.4-8.2); eGFR 82 ML/MIN
--- NOTE | 2020-04-28 06:20 | NUR ---
Problems reprioritized. Patient report given, questions answered & plan of care reviewed with Montez DELCID.
--- NOTE | 2020-04-28 06:20 | NUR ---
Patient in room PCU 3027. I have received report from Krystal DELCID and had the opportunity to ask questions and assume patient care.
[2020-04-28] MEDS: docusate sodium 100mg/10ml UD cup PO SCH ×2 (08:00→20:00)
[2020-04-28] MEDS: K, MAG and/or Phos replacement - Verify level? MC SCH (08:00)
[2020-04-28] MEDS: metoprolol tartrate 50mg tablet PO SCH ×2 (08:23→20:04)
[2020-04-28] MEDS: lactobacillus rhamnosus 10,000 MMU CELLS/CAPSULE PO SCH ×2 (08:23→20:04)
[2020-04-28] MEDS: losartan 50mg tablet PO SCH (08:24)
[2020-04-28] MEDS: enoxaparin 40mg/0.4ml syringe SUBCUT SCH ×2 (08:31→20:05)
[2020-04-28] MEDS: mineral oil/petrolatum, white cream 113gm jar TP SCH ×2 (08:31→20:05)
[2020-04-28] MEDS: nystatin 15 GM powder TP SCH ×2 (08:31→20:05)
[2020-04-28] MEDS ORDERED: morphine 2 MG/ML inj. syringe IV PRN ×2 (10:05)
[2020-04-28] MEDS: HYDROcodone/acetaminophen 5mg/325mg tablet PO PRN ×2 (10:45→23:31)
[2020-04-28 11:00] VITALS: BP 152/52
[2020-04-28 17:57] VITALS: BP 97/34
[2020-04-28 18:00] VITALS: BP 123/156
--- NOTE | 2020-04-28 18:00 | NUR ---
Patient in room PCU 3027. I have received report from Kathleen DELCID and had the opportunity to ask questions and assume patient care.
--- NOTE | 2020-04-28 18:30 | NUR ---
Problems reprioritized. Patient report given, questions answered & plan of care reviewed with Krystal DELCID.
[2020-04-28] MEDS: sennosides/docusate sodium tablet PO SCH (20:03)
[2020-04-28] MEDS: atorvastatin 20mg tablet PO SCH (20:04)
[2020-04-28] MEDS: diphenhydrAMINE 25 MG/10 ML UD oral solution PO SCH (20:04)
--- NOTE | 2020-04-28 21:00 | NUR ---
PAGER ID: [phone] MESSAGE: [phone] Debbie Dye: Would like a sleeping pill tonight, has a hard time falling asleep. Restoril? Krystal DELCID [id number]
[2020-04-28] MEDS ORDERED: temazepam 15mg capsule PO PRN (21:05)
[2020-04-28 22:00] VITALS: BP 138/50
[2020-04-29] MEDS: ipratropium/albuterol 3ml nebule NEB SCH ×7 (00:20→23:29)
--- NOTE | 2020-04-29 06:00 | NUR ---
Problems reprioritized. Patient report given, questions answered & plan of care reviewed with Katherine DELCID.
[2020-04-29 07:00] VITALS: BP 128/64
[2020-04-29] MEDS: HYDROcodone/acetaminophen 10/325mg tab PO PRN ×3 (07:48→15:54)
[2020-04-29] MEDS: enoxaparin 40mg/0.4ml syringe SUBCUT SCH ×2 (07:48→19:50)
[2020-04-29] MEDS: lactobacillus rhamnosus 10,000 MMU CELLS/CAPSULE PO SCH ×2 (07:48→19:49)
[2020-04-29] MEDS: losartan 50mg tablet PO SCH (07:49)
[2020-04-29] MEDS: metoprolol tartrate 50mg tablet PO SCH ×2 (07:49→19:50)
[2020-04-29] MEDS: nystatin 15 GM powder TP SCH ×2 (07:50→19:55)
[2020-04-29] MEDS: mineral oil/petrolatum, white cream 113gm jar TP SCH ×2 (07:50→19:55)
[2020-04-29] MEDS: K, MAG and/or Phos replacement - Verify level? MC SCH (07:50)
[2020-04-29] MEDS: docusate sodium 100mg/10ml UD cup PO SCH ×2 (07:50→19:55)
[2020-04-29 11:00] VITALS: BP 94/46
[2020-04-29 15:00] VITALS: BP 103/31
[2020-04-29 18:00] VITALS: BP 138/43
--- NOTE | 2020-04-29 18:00 | NUR ---
Patient in room PCU 3027. I have received report from Katherine DELCID and had the opportunity to ask questions and assume patient care.
--- NOTE | 2020-04-29 18:14 | NUR ---
Problems reprioritized. Patient report given, questions answered & plan of care reviewed with FARHANA Colvin. Patient stable at transfer of care.
[2020-04-29] MEDS: diphenhydrAMINE 25 MG/10 ML UD oral solution PO SCH (19:49)
[2020-04-29] MEDS: atorvastatin 20mg tablet PO SCH (19:55)
[2020-04-29] MEDS: sennosides/docusate sodium tablet PO SCH (19:55)
[2020-04-29 22:00] VITALS: BP 109/44
[2020-04-30 02:00] VITALS: BP 119/69
[2020-04-30] MEDS: HYDROcodone/acetaminophen 10/325mg tab PO PRN ×5 (03:13→21:33)
[2020-04-30] MEDS: ipratropium/albuterol 3ml nebule NEB SCH ×6 (03:42→23:44)
--- NOTE | 2020-04-30 04:26 | NUR ---
Family needs to be contacted Patient is concerned about unpaid bills and how she'll be able to pay on time. Family should be contacted to check on her affairs, and whether or not it has been taken care of. Will pass on to day shift to contact family at a more appropriate time.
--- NOTE | 2020-04-30 05:30 | NUR ---
Patient refused repositioning all shift. Patient stated that she is comfortable and didn't want to be moved. Even after being advised to turn to help relieve pressure from her wounds. Will continue to monitor patient.
[2020-04-30 06:08] LABS: BASOPHILS # (AUTO) 0.1 X10'3 (0-0.2); BASOPHILS % (AUTO) 0.7 % (0-1); EOSINOPHILS # (AUTO) 0.2 X10'3 (0-0.9); EOSINOPHILS % (AUTO) 2.8 % (0-6); HEMOGLOBIN 11.7 g/dl (12.0-16.0); LYMPHOCYTES % (AUTO) 23.9 % (21-51); MEAN CORPUSCULAR HEMOGLOBIN 30.1 PG (27.0-31.0); MEAN CORPUSCULAR HGB CONC 32.5 g/dL (33.0-36.5); MEAN CORPUSCULAR VOLUME 92.5 FL (78-98); MONOCYTES # (AUTO) 1.1 X10'3 (0-0.9); MONOCYTES % (AUTO) 13.4 % (2-12); NEUTROPHILS % (AUTO) 59.2 % (42-75); PLATELET COUNT 412 X10'3 (140-440); RED CELL DISTRIBUTION WIDTH 18.9 % (11.5-14.5); WHITE BLOOD COUNT 8.4 X10'3 (4.5-11.0)
[2020-04-30 06:23] LABS: ALANINE AMINOTRANSFERASE 14 U/L (12-78); ALBUMIN 2.5 G/DL (3.4-5.0); ALBUMIN/GLOBULIN RATIO 0.6 (1.1-1.5); ALKALINE PHOSPHATASE 89 IU/L (46-116); ANION GAP 7 (8-16); ASPARTATE AMINO TRANSFERASE 22 U/L (10-37); BILIRUBIN,TOTAL 0.5 MG/DL (0.1-1.0); BLOOD UREA NITROGEN 28 MG/DL (7-18); BUN/CREATININE RATIO 36.4 (6.6-38.0); CALCIUM 8.8 MG/DL (8.5-10.1); CHLORIDE 100 MMOL/L (99-107); CREATININE 0.77 MG/DL (0.40-0.90); GLUCOSE 109 MG/DL (70-104); POTASSIUM 4.3 MMOL/L (3.5-5.1); SODIUM 134 MMOL/L (135-145); TOTAL CARBON DIOXIDE 27.2 MMOL/L (24-32); TOTAL PROTEIN 6.4 G/DL (6.4-8.2); eGFR 71 ML/MIN
--- NOTE | 2020-04-30 06:34 | NUR ---
Problems reprioritized. Patient report given, questions answered & plan of care reviewed with Katherine DELCID.
--- NOTE | 2020-04-30 06:47 | NUR ---
Patient in room PCU 3027. I have received report from FARHANA Colvin and had the opportunity to ask questions and assume patient care.
[2020-04-30 07:00] VITALS: BP 133/45
[2020-04-30] MEDS: nystatin 15 GM powder TP SCH ×2 (07:42→20:17)
[2020-04-30] MEDS: K, MAG and/or Phos replacement - Verify level? MC SCH (07:42)
[2020-04-30] MEDS: docusate sodium 100mg/10ml UD cup PO SCH (07:42)
[2020-04-30] MEDS: mineral oil/petrolatum, white cream 113gm jar TP SCH ×2 (07:43→20:17)
[2020-04-30] MEDS: lactobacillus rhamnosus 10,000 MMU CELLS/CAPSULE PO SCH ×2 (07:43→20:16)
[2020-04-30] MEDS: losartan 50mg tablet PO SCH (07:43)
[2020-04-30] MEDS: metoprolol tartrate 50mg tablet PO SCH ×2 (07:43→20:16)
[2020-04-30] MEDS: enoxaparin 40mg/0.4ml syringe SUBCUT SCH ×2 (07:44→20:17)
[2020-04-30 08:19] LABS: ANISOCYTOSIS 2+; PLATELET ESTIMATE NORMAL
[2020-04-30 08:20] LABS: POLYCHROMASIA FEW
[2020-04-30 08:21] LABS: POIKILOCYTOSIS FEW
[2020-04-30 08:22] LABS: TEAR DROP CELLS FEW
[2020-04-30 11:00] VITALS: BP 102/41
[2020-04-30 15:00] VITALS: BP 107/44
--- NOTE | 2020-04-30 15:35 | NUR ---
reassessment: Pt PO improving to 75-100% avg meals past 2 days; continues to improve s/p corpak removal on pureed/NTL diet. LBM 04/28 receiving routine colace. R iliac crest STDI pressure area per WO 04/26. Stable wt w/ -31933um fluid balance this admit; unsure if I&O vs bed scale error? Will continue to monitor for additional protein needs this admit. Rec: 1. Continue pureed diet, nectar thick liquids per [employer] recs 2. monitor for ONS needs pending further PO hx s/p corpak removal 3. routine bowel care 4. weekly wts Addendum: 04/30/20 at [address] Amended: Links added.
[2020-04-30 18:00] VITALS: BP 101/34
--- NOTE | 2020-04-30 18:05 | NUR ---
Problems reprioritized. Patient report given, questions answered & plan of care reviewed with FARHANA Colvin. Pt stable at transfer of care.
--- NOTE | 2020-04-30 19:12 | NUR ---
PAGER ID: [phone] MESSAGE: [phone] Debbie Dye: Can Benadryl and Colace be changed to PO from oral solution? Krystal DELCID [id number]
[2020-04-30] MEDS ORDERED: diphenhydrAMINE 25mg capsule PO PRN (19:15)
[2020-04-30] MEDS: atorvastatin 20mg tablet PO SCH (20:16)
[2020-04-30] MEDS: sennosides/docusate sodium tablet PO SCH (20:16)
[2020-04-30] MEDS: docusate sod 100mg capsule PO SCH (20:17)
[2020-05-01 02:00] VITALS: BP 122/36
[2020-05-01] MEDS: ipratropium/albuterol 3ml nebule NEB SCH ×6 (04:09→23:07)
--- NOTE | 2020-05-01 06:13 | NUR ---
Patient in room PCU 3027. I have received report from FARHANA Colvin and had the opportunity to ask questions and assume patient care.
--- NOTE | 2020-05-01 06:30 | NUR ---
Problems reprioritized. Patient report given, questions answered & plan of care reviewed with Katherine DELCID.
[2020-05-01] MEDS: HYDROcodone/acetaminophen 10/325mg tab PO PRN ×3 (06:45→20:09)
[2020-05-01 07:00] VITALS: BP 133/106
[2020-05-01] MEDS: K, MAG and/or Phos replacement - Verify level? MC SCH (09:00)
[2020-05-01] MEDS: lactobacillus rhamnosus 10,000 MMU CELLS/CAPSULE PO SCH ×2 (09:05→20:09)
[2020-05-01] MEDS: nystatin 15 GM powder TP SCH ×2 (09:05→20:10)
[2020-05-01] MEDS: enoxaparin 40mg/0.4ml syringe SUBCUT SCH ×2 (09:06→20:10)
[2020-05-01] MEDS: metoprolol tartrate 50mg tablet PO SCH ×2 (09:06→20:06)
[2020-05-01] MEDS: losartan 50mg tablet PO SCH (09:07)
[2020-05-01] MEDS: mineral oil/petrolatum, white cream 113gm jar TP SCH ×2 (09:07→20:10)
[2020-05-01 11:00] VITALS: BP 142/68
[2020-05-01 15:00] VITALS: BP 131/76
[2020-05-01 18:00] VITALS: BP 121/37
--- NOTE | 2020-05-01 18:29 | NUR ---
Problems reprioritized. Patient report given, questions answered & plan of care reviewed with Lin DELCID.
--- NOTE | 2020-05-01 18:30 | NUR ---
Patient in room PCU 3027. I have received report from Katherine DELCID and had the opportunity to ask questions and assume patient care.
[2020-05-01] MEDS: atorvastatin 20mg tablet PO SCH (20:09)
[2020-05-01] MEDS: sennosides/docusate sodium tablet PO SCH (20:10)
[2020-05-01] MEDS: docusate sod 100mg capsule PO SCH (20:10)
[2020-05-01 22:00] VITALS: BP 98/22
--- NOTE | 2020-05-01 22:00 | NUR ---
pt is refusing to be turned and repositioned in bed, explained and discussed with the pt the benefits and preventive measures this takes especially with an individual in her case who is very limited to movement, pt is still refusing
[2020-05-02] VITALS (7 sets, daily range): BP systolic 104–139; BP diastolic 27–74
[2020-05-02] MEDS: ipratropium/albuterol 3ml nebule NEB SCH ×6 (03:53→23:09)
--- NOTE | 2020-05-02 06:25 | NUR ---
Problems reprioritized. Patient report given, questions answered & plan of care reviewed with []. Addendum: 05/02/20 at 0642 by Aurelia Elias RN Patient in room [place] [address]. I have received report from FARHANA Ceballos and had the opportunity to ask questions and assume patient care.
--- NOTE | 2020-05-02 06:28 | NUR ---
Problems reprioritized. Patient report given, questions answered & plan of care reviewed with Aurelia DELCID.
--- NOTE | 2020-05-02 06:29 | NUR ---
Problems reprioritized. Patient report given, questions answered & plan of care reviewed with jonel DELCID.
[2020-05-02] MEDS: lactobacillus rhamnosus 10,000 MMU CELLS/CAPSULE PO SCH ×2 (07:10→20:21)
[2020-05-02] MEDS: metoprolol tartrate 50mg tablet PO SCH ×2 (07:11→20:20)
[2020-05-02] MEDS: losartan 50mg tablet PO SCH (07:11)
[2020-05-02] MEDS: enoxaparin 40mg/0.4ml syringe SUBCUT SCH ×2 (07:12→20:21)
[2020-05-02] MEDS: mineral oil/petrolatum, white cream 113gm jar TP SCH ×2 (07:15→20:22)
[2020-05-02] MEDS: nystatin 15 GM powder TP SCH ×2 (07:15→20:21)
[2020-05-02] MEDS: K, MAG and/or Phos replacement - Verify level? MC SCH (08:00)
[2020-05-02] MEDS: HYDROcodone/acetaminophen 10/325mg tab PO PRN (13:54)
--- NOTE | 2020-05-02 18:12 | NUR ---
Problems reprioritized. Patient report given, questions answered & plan of care reviewed with FARHANA Hyde.
--- NOTE | 2020-05-02 18:15 | NUR ---
notified. PAGER ID: [phone] MESSAGE: Re; Debbie Dye. [phone]. Insurance approved transport and rehab in [place]. She's to be picked up at 0800 tomorrow. Need your signature for transport paperwork. Aurelia N #[id number]
[2020-05-02] MEDS: docusate sod 100mg capsule PO SCH (20:20)
[2020-05-02] MEDS: sennosides/docusate sodium tablet PO SCH (20:20)
[2020-05-02] MEDS: atorvastatin 20mg tablet PO SCH (20:20)
[2020-05-03 02:00] VITALS: BP 116/55
[2020-05-03] MEDS: ipratropium/albuterol 3ml nebule NEB SCH (03:56)
[2020-05-03 06:00] VITALS: BP 128/53
--- NOTE | 2020-05-03 06:16 | NUR ---
Problems reprioritized. Patient report given, questions answered & plan of care reviewed with FARHANA Wang.
--- NOTE | 2020-05-03 06:17 | NUR ---
Patient in room PCU 3027. I have received report from Marti DELCID and had the opportunity to ask questions and assume patient care.
[2020-05-03] MEDS: losartan 50mg tablet PO SCH (08:18)
[2020-05-03 08:19] VITALS: BP_SYST 128
[2020-05-03] MEDS: lactobacillus rhamnosus 10,000 MMU CELLS/CAPSULE PO SCH (08:19)
[2020-05-03] MEDS: metoprolol tartrate 50mg tablet PO SCH (08:19)
[2020-05-03] MEDS: enoxaparin 40mg/0.4ml syringe SUBCUT SCH (08:19)
[2020-05-03] MEDS: HYDROcodone/acetaminophen 10/325mg tab PO PRN (08:22)
--- NOTE | 2020-05-03 09:19 | NUR ---
pt is scheduled to be transferred to [facility] acute SNF per md orders, pt is stable for transfer, transfer report given to Giovana DELCID and all questions answered, tele monitor removed and returned, PIV dc'ed intact, dry dressing in place, MRSA swab obtained, wound pictures taken prior to transfer, all belongings w/ pt at time of transfer, pt transferred via [facility] w/ lizette and one transporter at 0845.
== END 2020-05-03 09:40 | DRG 853 ==
LOC: ER 22:17 → ED HOLD 04-06 03:00 → PCU 3S 04-06 05:00 → ICU 2S 04-10 13:22 → PCU 3S 04-24 14:38
PROVIDERS: ADMIT Family Medicine; ATTEND Internal Medicine
PROC: 0QSH04Z Reposition Left Tibia with Internal Fixation Device, Open Approach (ICD-10-PCS; principal; 2020-04-07 18:44)
PROC: 30233N1 Transfusion of Nonautologous Red Blood Cells into Peripheral Vein, Percutaneous Approach (ICD-10-PCS; 2020-04-08)
PROC: 5A1955Z Respiratory Ventilation, Greater than 96 Consecutive Hours (ICD-10-PCS; 2020-04-10)
PROC: 0BH17EZ Insertion of Endotracheal Airway into Trachea, Via Natural or Artificial Opening (ICD-10-PCS; 2020-04-10)
PROC: 02HV33Z Insertion of Infusion Device into Superior Vena Cava, Percutaneous Approach (ICD-10-PCS; 2020-04-10)
PROC: 0W993ZZ Drainage of Right Pleural Cavity, Percutaneous Approach (ICD-10-PCS; 2020-04-13)
PROC: 5A09357 Assistance with Respiratory Ventilation, Less than 24 Consecutive Hours, Continuous Positive Airway Pressure (ICD-10-PCS; 2020-04-18)
PROC: 5A09357 Assistance with Respiratory Ventilation, Less than 24 Consecutive Hours, Continuous Positive Airway Pressure (ICD-10-PCS; 2020-04-19)
PROC: 5A09357 Assistance with Respiratory Ventilation, Less than 24 Consecutive Hours, Continuous Positive Airway Pressure (ICD-10-PCS; 2020-04-20)
DX: A41.9 Sepsis, unspecified organism (principal); J96.00 Acute respiratory failure, unspecified whether with hypoxia or hypercapnia; S82.102A Unspecified fracture of upper end of left tibia, initial encounter for closed fracture; N39.0 Urinary tract infection, site not specified; G93.40 Encephalopathy, unspecified; I50.32 Chronic diastolic (congestive) heart failure; B96.20 Unspecified Escherichia coli [E. coli] as the cause of diseases classified elsewhere; E66.01 Morbid (severe) obesity due to excess calories; E78.00 Pure hypercholesterolemia, unspecified; E78.5 Hyperlipidemia, unspecified; G47.33 Obstructive sleep apnea (adult) (pediatric); I11.0 Hypertensive heart disease with heart failure; I48.0 Paroxysmal atrial fibrillation; I49.5 Sick sinus syndrome; M19.90 Unspecified osteoarthritis, unspecified site; R73.03 Prediabetes; S80.11XA Contusion of right lower leg, initial encounter; S80.12XA Contusion of left lower leg, initial encounter; S82.402A Unspecified fracture of shaft of left fibula, initial encounter for closed fracture; W18.39XA Other fall on same level, initial encounter; Y93.89 Activity, other specified; Y92.89 Other specified places as the place of occurrence of the external cause; Y99.8 Other external cause status; Z79.01 Long term (current) use of anticoagulants; Z79.82 Long term (current) use of aspirin; Z82.49 Family history of ischemic heart disease and other diseases of the circulatory system; Z83.3 Family history of diabetes mellitus; Z90.710 Acquired absence of both cervix and uterus; Z95.0 Presence of cardiac pacemaker; Z79.899 Other long term (current) drug therapy
CPT/HCPCS: 29505; 32557; 36415; 36430; 36600; 70470; 71045; 71275; 72040; 73020; 73564; 73590; 73701; 74018; 76000; 76937; 80048; 80053; 80069; 81001; 82140; 82150; 82570; 82803; 82810; 82945; 82948; 83036; 83605; 83615; 83735; 83880; 84100; 84132; 84133; 84134; 84145; 84156; 84157; 84300; 84439; 84443; 84484; 85018; 85025; 85610; 85730; 86885; 86900; 86901; 86920; 87040; 87070; 87077; 87081; 87088; 87186; 89051; 92508; 92616; 93005; 93306; 93925; 93975; 94002; 94003; 94640; 94660; 94760; 96361; 97110; 97112; 97161; 97530; 99291; 99292; A4618; A6222; A6449; A7000; C1713; C9113; G0378; J0690; J1100; J1170; J1250; J1450; J1650; J1815; J1940; J1956; J2020; J2212; J2250; J2270; J2405; J2795; J3010; J3475; J3480; J3490; J7030; J7060; J7120; P9016; P9045; P9047; Q0163; Q9967